=== PATIENT | male | born 1960 | race Caucasian/White ===

== ENCOUNTER 2020-08-01 12:05 | Outpatient (REF) | payer BC, SELFPAY ==
[2020-08-01 13:29] LABS: Estimated Average Glucose 166 mg/dL; Hemoglobin A1c % 7.4 %
[2020-08-01 13:42] LABS: Alanine Aminotransferase 14 U/L (0-40); Anion Gap 13 (12-20); Aspartate Amino Transferase 12 U/L (5-37); Blood Urea Nitrogen 21 mg/dL (9-16); Carbon Dioxide 26 mmol/L (22-29); Chloride 101 mmol/L (96-108); Cholesterol 224 mg/dL; Estimated Glomerular Filt Rate > 60; Glucose Fasting 138 mg/dL (60-99); HDL Cholesterol 43 mg/dL; LDL Cholesterol Calculated 127 mg/dl; Potassium 4.2 mmol/l (3.3-5.1); Sodium 136 mmol/L (135-145); Triglycerides 272 mg/dL
== END 2020-08-01 12:06 | disposition home or self-care (01) ==
LOC: HO.LAB 12:05
PROVIDERS: PCP Internal Medicine; Visit Provider Internal Medicine
DX: E11.65 Type 2 diabetes mellitus with hyperglycemia (principal); I10 Essential (primary) hypertension; E66.3 Overweight
CPT/HCPCS: 80048; 80061; 83036; 84450; 84460

== ENCOUNTER 2020-11-20 09:59 | Outpatient (REF) | payer BC, SELFPAY ==
[2020-11-20 11:24] LABS: Estimated Average Glucose 160 mg/dL; Hemoglobin A1c % 7.2 %
[2020-11-20 11:52] LABS: Alanine Aminotransferase 15 U/L (0-40); Anion Gap 14 (12-20); Aspartate Amino Transferase 15 U/L (5-37); Blood Urea Nitrogen 16 mg/dL (9-16); Calcium 9.5 mg/dL (8.4-10.2); Carbon Dioxide 26 mmol/L (22-29); Chloride 103 mmol/L (96-108); Cholesterol 212 mg/dL; Estimated Glomerular Filt Rate > 60; Glucose Fasting 126 mg/dL (60-99); HDL Cholesterol 39 mg/dL; LDL Cholesterol Calculated 126 mg/dl; Potassium 5.2 mmol/L (3.3-5.1); Sodium 138 mmol/L (135-145); Triglycerides 239 mg/dL
[2020-11-20 12:02] LABS: Creatinine Urine 67.38 mg/dL; Vitamin D 25-OH Total 19.7 ng/mL (>30)
== END 2020-11-20 10:00 | disposition home or self-care (01) ==
LOC: HO.HMGCLDS 09:59
PROVIDERS: PCP Internal Medicine; Visit Provider Internal Medicine
DX: I10 Essential (primary) hypertension (principal); E78.2 Mixed hyperlipidemia; E11.29 Type 2 diabetes mellitus with other diabetic kidney complication; R80.9 Proteinuria, unspecified; E11.65 Type 2 diabetes mellitus with hyperglycemia; Z86.39 Personal history of other endocrine, nutritional and metabolic disease
CPT/HCPCS: 36415; 80048; 80061; 82043; 82306; 83036; 84450; 84460

== ENCOUNTER 2021-05-24 09:09 | Outpatient (REF) | payer BC, SELFPAY ==
[2021-05-24 11:57] LABS: Alanine Aminotransferase 15 U/L (0-40); Anion Gap 13 (12-20); Aspartate Amino Transferase 14 U/L (5-37); Blood Urea Nitrogen 16 mg/dL (9-16); Calcium 9.5 mg/dL (8.4-10.2); Carbon Dioxide 27 mmol/L (22-29); Chloride 103 mmol/L (96-108); Cholesterol 184 mg/dL; Estimated Glomerular Filt Rate > 60; Glucose Fasting 124 mg/dL (60-99); HDL Cholesterol 40 mg/dL; LDL Cholesterol Calculated 101 mg/dl; Potassium 4.6 mmol/L (3.3-5.1); Sodium 138 mmol/L (135-145); Triglycerides 217 mg/dL
[2021-05-24 12:08] LABS: Estimated Average Glucose 154 mg/dL
[2021-05-24 12:19] LABS: Vitamin D 25-OH Total 32.4 ng/mL (>30)
== END 2021-05-24 09:10 | disposition home or self-care (01) ==
LOC: HO.HMGCLDS 09:09
PROVIDERS: PCP Internal Medicine; Visit Provider Internal Medicine
DX: E11.29 Type 2 diabetes mellitus with other diabetic kidney complication (principal); E11.65 Type 2 diabetes mellitus with hyperglycemia; E55.9 Vitamin D deficiency, unspecified; E78.2 Mixed hyperlipidemia; I10 Essential (primary) hypertension; R80.9 Proteinuria, unspecified
CPT/HCPCS: 36415; 80048; 80061; 82306; 83036; 84450; 84460

== ENCOUNTER 2022-01-01 10:25 | Outpatient (REF) | payer BC, SELFPAY ==
[2022-01-01 11:51] LABS: Estimated Average Glucose 169 mg/dL; Hemoglobin A1c % 7.5 %
[2022-01-01 11:56] LABS: Alanine Aminotransferase 16 U/L (0-40); Anion Gap 14 (12-20); Aspartate Amino Transferase 16 U/L (5-37); Blood Urea Nitrogen 21 mg/dL (9-16); Calcium 9.5 mg/dL (8.4-10.2); Carbon Dioxide 24 mmol/L (22-29); Chloride 104 mmol/L (96-108); Cholesterol 174 mg/dL; Estimated Glomerular Filt Rate > 60; Glucose Fasting 126 mg/dL (60-99); HDL Cholesterol 34 mg/dL; LDL Cholesterol Calculated 98 mg/dl; Potassium 4.9 mmol/L (3.3-5.1); Sodium 137 mmol/L (135-145); Triglycerides 213 mg/dL
[2022-01-01 12:16] LABS: Vitamin D 25-OH Total 29.5 ng/mL (>30)
[2022-01-01 12:35] LABS: Creatinine Urine 109.02 mg/dL; Microalbum/Creatinine Ratio Ur 9.1 ug/mg cr
== END 2022-01-01 10:26 | disposition home or self-care (01) ==
LOC: HO.HMGCLDS 10:25
PROVIDERS: PCP Internal Medicine; Visit Provider Internal Medicine
DX: Z12.5 Encounter for screening for malignant neoplasm of prostate (principal); E11.29 Type 2 diabetes mellitus with other diabetic kidney complication; E11.65 Type 2 diabetes mellitus with hyperglycemia; E78.2 Mixed hyperlipidemia; I10 Essential (primary) hypertension; R80.9 Proteinuria, unspecified; Z86.39 Personal history of other endocrine, nutritional and metabolic disease
CPT/HCPCS: 36415; 80048; 80061; 82043; 82306; 83036; 84153; 84450; 84460

== ENCOUNTER 2022-08-02 09:21 | Outpatient (REF) | payer BC, SELFPAY ==
[2022-08-02 12:43] LABS: Alanine Aminotransferase 13 U/L (0-40); Aspartate Amino Transferase 12 U/L (5-37); Blood Urea Nitrogen 19 mg/dL (9-16); Calcium 9.2 mg/dL (8.4-10.2); Cholesterol 173 mg/dL; Estimated Glomerular Filt Rate > 60; Glucose Fasting 113 mg/dL (60-99); HDL Cholesterol 35 mg/dL; LDL Cholesterol Calculated 101 mg/dl; PSA,Total (Free>4and<10) 0.85 ng/mL (0.00-4.00); Triglycerides 188 mg/dL; Vitamin D 25-OH Total 29.5 ng/mL (>30)
[2022-08-02 12:47] LABS: Estimated Average Glucose 148 mg/dL; Hemoglobin A1c % 6.8 %
[2022-08-02 14:06] LABS: Creatinine Urine 74.38 mg/dL; Microalbum/Creatinine Ratio Ur 12.1 ug/mg cr
[2022-08-02 14:28] LABS: Anion Gap 11 (12-20); Carbon Dioxide 26 mmol/L (22-29); Chloride 100 mmol/L (96-108); Potassium 4.2 mmol/L (3.3-5.1); Sodium 133 mmol/L (135-145)
== END 2022-08-02 09:22 | disposition home or self-care (01) ==
LOC: HO.HMGCLDS 09:21
PROVIDERS: PCP Internal Medicine; Visit Provider Internal Medicine
DX: Z12.5 Encounter for screening for malignant neoplasm of prostate (principal); R80.9 Proteinuria, unspecified; I10 Essential (primary) hypertension; E78.2 Mixed hyperlipidemia; E11.29 Type 2 diabetes mellitus with other diabetic kidney complication; E11.65 Type 2 diabetes mellitus with hyperglycemia; E55.9 Vitamin D deficiency, unspecified
CPT/HCPCS: 36415; 80048; 80061; 82043; 82306; 83036; 84153; 84450; 84460

== ENCOUNTER 2022-12-02 11:08 | Outpatient (REF) | payer BC, SELFPAY ==
[2022-12-02 14:45] LABS: Alanine Aminotransferase 13 U/L (0-40); Anion Gap 12 (12-20); Aspartate Amino Transferase 12 U/L (5-37); Blood Urea Nitrogen 11 mg/dL (9-16); Carbon Dioxide 26 mmol/L (22-29); Chloride 106 mmol/L (96-108); Cholesterol 150 mg/dL; Estimated Average Glucose 169 mg/dL; Estimated Glomerular Filt Rate > 60; Glucose Fasting 133 mg/dL (60-99); HDL Cholesterol 36 mg/dL; Hemoglobin A1c % 7.5 %; LDL Cholesterol Calculated 82 mg/dl; Potassium 4.8 mmol/L (3.3-5.1); Sodium 139 mmol/L (135-145); Triglycerides 164 mg/dL
[2022-12-02 14:48] LABS: Vitamin D 25-OH Total 34.6 ng/mL (>30)
== END 2022-12-02 11:09 | disposition home or self-care (01) ==
LOC: HO.HMGCLDS 11:08
PROVIDERS: PCP Internal Medicine; Visit Provider Internal Medicine
DX: E11.9 Type 2 diabetes mellitus without complications (principal); E55.9 Vitamin D deficiency, unspecified; E78.2 Mixed hyperlipidemia; I10 Essential (primary) hypertension; Z79.4 Long term (current) use of insulin
CPT/HCPCS: 36415; 80048; 80061; 82306; 83036; 84450; 84460

== ENCOUNTER 2022-12-04 11:29 | Outpatient (AMB) | payer BC, SELFPAY ==
--- NOTE | 2022-12-04 11:45 | A.OFFPC_ITS ---
Vital Signs 12/04/22 11:51 Height 5 ft 11 in Weight 193 lb 8 oz BMI 26.9 BP 104/68 Blood Pressure Location Rt brachial Position Sitting Pulse 66 Pulse Source Pulse Oximeter Pulse Oximetry (%) 97 Oxygen Delivery Method Room Air Intake Visit Reasons: follow-up diabetes, lipids, HTN, vitamin-D Intake Note: Pt is here today to f/u DM lipids, HTN and vitamin D Allergies minoxidil [From Rogaine] Allergy (Unknown, Verified 04/29/23 04:22) rash/swelling Medication List - Last Reconciled 12/04/22 by Daksha Mendenhall MD atorvastatin 20 mg PO DAILY cholecalciferol (vitamin D3) 50 mcg PO DAILY empagliflozin (Jardiance) 25 mg PO DAILY lisinopril 5 mg PO DAILY metformin 1,000 mg PO BID vitamin B complex (B Complex-Vitamin B12 tablet) 1 tab PO DAILY Tobacco use date assessed: 12/04/22 HPI follow-up diabetes, lipids, HTN, vitamin-D HPI Details 63-year-old male here today for follow-u p on his diabetes mellitus, hypertension and dyslipidemia. He has been compliant with taking his med ications, has no specific complaints at present time. Recent fasting labs showed hemoglobin A1c at 7.5%, but fasting lipids, I all within normal limits. Hypertension stable controlled on present medications. [facility] Medical History (Updated 08/03/23 @ 23:55 by Daksha Mendenhall MD) Immunization refused Diabetes mellitus with hyperglycemia, without long-term current use of insulin Polyarthralgia Refused influenza vaccine Pneumococcal vaccination declined Diabetes mellitus without complication, with long-term current use of insulin History of vitamin D deficiency History of deep venous thrombosis (DVT) of distal vein of right lower extremity Diabetic retinopathy screening Erectile dysfunction Essential hypertension Mixed dyslipidemia Surgical History Hx of colonoscopy History of umbilical hernia Family History Father CAD (coronary artery disease) Myocardial infarction CVD (cardiovascular disease) Mother Esophageal cancer Brother Bladder cancer Brother No problems noted. Brother No problems noted. Brother No problems noted. Daughter No problems noted. Daughter No problems noted. Social History Housing: House Alcohol intake: current Alcohol intake frequency: holidays/special occasions only Patient Tobacco Use Status: Never used Tobacco e-Cigarette/Vaping Use: Never Used service: No Current occupational status: employed Cognitive needs: No Hearing needs: No Vision needs: Yes Questionnaire PHQ-9 Over the last 2 weeks, how often have you been bothered by any of the following problems? 1. Little interest or pleasure in doing things: not at all 2. Feeling down, depressed, or hopeless: not at all 3. Trouble falling or staying asleep, or sleeping too much: several days 4. Feeling tired or having little energy: not at all 5. Poor appetite or overeating: not at all 6. Feeling bad about yourself - or that you are a failure or have let yourself or your family down: not at all 7. Trouble concentrating on things, such as reading the newspaper or watching television: not at all 8. Moving or speaking so slowly that other people could have noticed. Or the opposite - being so fidgety or restless that you have been moving around a lot more than usual: not at all 9. Thoughts that you would be better off or of hurting yourself in some way: not at all Total score: 1 Depression Screening Interpretation: Negative 83427 - PHQ-9 Billing: Yes Source: Developed by Drs. Jason Couch, Jeannine Sepulveda, Alan Fitch and colleagues, with an educational pat from [employer]. Thrive Questionnaire Declines Thrive assessment: No Date Thrive assessed: 12/04/22 I am a: Patient What is your living situation today?: I have a steady place to live Within the past 12 months, did the food you bought not last and you didn't have the money to get more?: Never true Within the past 12 months, did you worry whether your food would run out before you got money to buy more?: Never true Do you have trouble paying for medicines?: Yes Do you have trouble getting transportation to medical appointments?: No Do you have trouble paying your heating and electricity bill?: No Do you have trouble taking care of your child, family member or friend?: No Do you have trouble with day-to-day activities such as bathing, preparing meals, shopping, managing finances, etc.?: No Are you currently unemployed and looking for a job?: No Are you interested in more education?: No AUDIT C Alcohol Use Questionnaire (AUDIT-C) 1. How often do you have a drink containing alcohol?: Monthly or less 2. How many drinks containing alcohol do you have on a typical day when you are drinking?: 1 or 2 3. How often do you have six or more drinks on one occasion?: Never Total Score: 1 LASHAUN-7 AMB Questionnaire LASHAUN-7 Date LASHAUN - 7 assessed: 12/04/22 Feeling nervous, anxious, or on edge: 0 = Not at all Not being able to stop or control worryin = Not at all Worrying too much about different things: 0 = Not at all Trouble relaxin = Not at all Being so restless that it is hard to sit still: 0 = Not at all Becoming easily annoyed or irritable: 0 = Not at all Feeling afraid as if something awful might happen: 0 = Not at all Total LASHAUN-7 score (0-4 normal; 5-9 mild; 10-14 moderate; 15-21 severe): 0 Source: Developed by Drs. Jason Couch, Jeannine Sepulveda, Alan Fitch and colleagues, with an educational pat from [employer]. LASHAUN-7 Assessment Billing LASHAUN-7 Assessment Tool: LASHAUN-7 Assessment 46529 Review of Systems Const Denies fatigue, Denies fever(s), Denies headache(s) and Denies weakness Eyes Details: No retinopathy per patient, sees Dr. Grande yearly Denies change in vision, Denies eye discharge and Denies itchy eyes ENT Denies dizziness, Denies headache(s), Denies nasal congestion, Denies nasal d ischarge and Denies sore throat Card Denies chest pain, Denies lightheadedness, Denies palpitations and Denies dyspnea Resp Denies chest congestion, Denies cough, Denies dyspnea and Denies wheezing GI Denies abdominal pain, Denies change in bowel habits and Denies heartburn Denies dysuria, Denies urinary frequency and Denies urinary urgency Musc Denies myalgias and Denies muscle weakness Skin/Breast Denies lesions and Denies rash Neuro Denies dizziness, Denies headache(s) and Denies weakness Endo Denies fatigue, Denies polydipsia, Denies polyuria and Denies palpitations Gabriele/Lymph Denies easy bruising Aller/Immun Denies itchy eyes, Denies seasonal rhinorrhea and Denies wheezing Physical exam (Primary Care) Vital Signs: Last Vital Signs Pulse 66 12/04/22 11:51 BP 104/68 12/04/22 11:51 Pulse Ox 97 12/04/22 11:51 Oxygen Delivery Method Room Air 12/04/22 11:51 BMI result Body Mass Index 26.9 Tobacco/Smoking Status: Tobacco use Status Tobacco use date assessed 12/04/22 12/04/22 11:59 Patient Tobacco Use Status Never used Tobacco 12/04/22 11:45 e-Cigarette/Vaping Use Never Used 12/04/22 11:45 PHQ-9: PHQ-9 Score PHQ-9: Total score 1 12/04/22 12:31 Depression Screening Interpretation: Negative Thrive Assessment: Date of Thrive Assessment Date Thrive assessed 12/04/22 12/04/22 11:59 Const General: comfortable, no acute distress and alert Orientation/consciousness: patient oriented x3 HENMT Ears: external ears normal, TM's normal bilaterally and EAC's normal General nose exam: Normal external nose present and No nasal discharge present Mouth: oropharynx normal and moist mucous membranes Eyes General: appearance normal, both eyes and all related structures Neck Neck: Yes full ROM, Yes no lymphadenopathy and Yes supple Resp Effort & Inspection: normal respiratory effort and able to speak in complete sentences Auscultation: clear to auscultation bilaterally Cardio Rate: regular rate Rhythm: regular rhythm Heart sounds: S1 normal heart sound present and S2 normal heart sound present GI Palpation (GI): Soft to palpation, nontender and no masses Auscultation: normal bowel sounds Male General Exam: Yes normal external exam Back/Spine/Pelvis Back: No back tenderness Skin General skin exam: no rashes or lesions noted Neuro General: patient oriented x3, gait normal, tone normal, moves all extremities, Normal light touch and pain sensation and no focal motor deficits Cranial nerves: Yes CN's II-XII intact bilaterally Cognition (Neuro): normal cognition Extrem General: Yes full ROM, Yes no joint enlargement, Yes no clubbing, cyanosis or edema and Yes no calf tenderness Results Reviewed Results Reviewed: Laboratory Tests 12/02/22 11:13 Estimat Average Glucose 169 Hemoglobin A1c % 7.5 RUN: 12/04/22 1218 PAGE 1 [facility] [address] [place] [id number] Community Development Coordinator: Willie Gregorio M.D. Specimen Inquiry Name: Kevin Martin Age/Sex: 62/M : 1960 Unit#: [id number] Attend Dr: Daksha Mendenhall MD Re12/02/22 Status: DEP REF Location: [facility] Disch: SPEC : [id number] MELANY: 12/02/22 STATUS: COMP REQ : [id number] RECD: 12/02/22-[address]: Daksha Mendenhall MD COMP: 12/02/22-1448 ENTERED: 12/02/22-[address]: ORDERED: Met Prof Fast, AST, ALT, Lipid Panel, Vitamin D 25-OH Test Result Flag Reference Site Sodium 139 135-145 mmol/L Potassium 4.8 3.3-5.1 mmol/L CL 106 96-108 mmol/L CO2 26 22-29 mmol/L Gap 12 12-20 BUN 11 9-16 mg/dL Creat 0.92 0.5-1.4 mg/dL EGFR > 60 NOTE: For -Marshallese individuals, multiply the result by 1.210. Chronic Kidney Disease: Estimated GFR < 60 mL/min/1.73m2 Severe Kidney Disease: Estimated GFR < 15 mL/min/1.73m2 FBS 133 H 60-99 mg/dL A fasting glucose of 126 mg/dl or greater on more than one occasion is considered diagnostic of diabetes. CA 9.0 8.4-10.2 mg/dL AST (GOT) 12 5-37 U/L ALT (GPT) 13 0-40 U/L Triglyceride 164 mg/dL Desirable Triglyceride: less than 150 mg/dL Borderline High Triglyceride 150-199 mg/dL High Triglyceride: 200-499 mg/dL Very High Triglyceride: greater than or equal to 5OO mg/dL Chol 150 mg/dL Desirable Cholesterol: less than 200 mg/dL Borderline High Cholesterol: 200-239 mg/dL High Cholesterol: greater than 239 mg/dL LDL Calculated 82 mg/dl Desirable LDL: less than 100 mg/dL Near Optimal/Above Optimal LDL: 110-129 mg/dL Borderline High LDL: 130-159 mg/dL High LDL: 160-189 mg/dL Very High LDL: greater than or equal to 190 mg/dL HDL 36 mg/dL Desirable HDL: greater than 40 mg/dL Note: This HDL assay may give artificially low results in patients with liver disease. Vit D 25-OH Tot 34.6 >30 ng/mL Health Based Reference Values* < 20 ng/mL Deficient 20-30 ng/mL Insufficient > 30 ng/mL Sufficient Assessment and Plan Assessment & Plan (1) Diabetes mellitus with hyperglycemia, without long-term current use of insulin: Code(s): E11.65 - Type 2 diabetes mellitus with hyperglycemia Qualifiers: Diabetes mellitus type: type 2 Qualified Code(s): E11.65 - Type 2 diabetes mellitus with hyperglycemia Plan: Hemoglobin A1c at 7.5%. Goal is to go<6.5%. Stressed importance of following recommended diet and rec getting regular exercise. Will continue on current dose of metformin 1000 mg 1 tablet twice a day and Jardiance 25 mg daily. Will check diabetes mellitus control in 3 months panel and (2) Pneumococcal vaccination declined: Code(s): Z28.21 - Immunization not carried out because of patient refusal (3) Refused influenza vaccine: Code(s): Z28.21 - Immunization not carried out because of patient refusal (4) Essential hypertension: Code(s): I10 - Essential (primary) hypertension Plan: Blood pressure at goal of less than 130/80. Continue with current medication. Reinforced importance of following a low sodium diet, getting regular exercise, and lowering stress levels. (5) Mixed dyslipidemia: Code(s): E78.2 - Mixed hyperlipidemia Plan: Reviewed recent fasting lipid profile with patient with levels at goal . Continue with atorvastatin 20 mg daily , in addition to adherence to low- cholesterol diet and regular exercise, at least 30 minutes 3 to 4 times a week. Advised patient to make healthy food choices, eat more fruits, vegetables, whole grains, wild caught fish and low-fat dairy. Limit amount of meat and fried or fatty food products, as well as processed foods and fast foods. Follow-up scheduled with repeat fasting lipid panel in 3 months. Orders: Orders Hemoglobin A1c 3 Months Z28.21 - Immunization not carried out because of patient refusal, E11.65 - Type 2 diabetes mellitus with hyperglycemia, I10 - Essential (primary) hypertension, E78.2 - Mixed hyperlipidemia Lipid Panel 3 Months Z28.21 - Immunization not carried out because of patient refusal, E11.65 - Type 2 diabetes mellitus with hyperglycemia, I10 - Essential (primary) hypertension, E78.2 - Mixed hyperlipidemia Vitamin D 25-OH Total 3 Months Z28.21 - Immunization not carried out because of patient refusal, E11.65 - Type 2 diabetes mellitus with hyperglycemia, I10 - Essential (primary) hypertension, E78.2 - Mixed hyperlipidemia Aspartate Amino Transferase 3 Months Z28.21 - Immunization not carried out because of patient refusal, E11.65 - Type 2 diabetes mellitus with hyperglycemia, I10 - Essential (primary) hypertension, E78.2 - Mixed hyperlipidemia Microalbumin, Random (w Creat) 3 Months Z28.21 - Immunization not carried out because of patient refusal, E11.65 - Type 2 diabetes mellitus with hyperglycemia, I10 - Essential (primary) hypertension, E78.2 - Mixed hyperlipidemia Vitamin B12 and Folate 3 Months Z28.21 - Immunization not carried out because of patient refusal, E11.65 - Type 2 diabetes mellitus with hyperglycemia, I10 - Essential (primary) hypertension, E78.2 - Mixed hyperlipidemia Alanine Aminotransferase 3 Months Z28.21 - Immunization not carried out because of patient refusal, E11.65 - Type 2 diabetes mellitus with hyperglycemia, I10 - Essential (primary) hypertension, E78.2 - Mixed hyperlipidemia Basic Metabolic Panel Fasting 3 Months Z28.21 - Immunization not carried out because of patient refusal, E11.65 - Type 2 diabetes mellitus with hyperglycemia, I10 - Essential (primary) hypertension, E78.2 - Mixed hyperlipidemia Medications: Changed From metformin 1,000 mg PO BID 180 tabs 1RF To metformin 1,000 mg PO BID 180 tabs 3RF Refilled atorvastatin 20 mg PO DAILY 90 tabs 4RF Coding Level of Care Code Est Pt Level 4 (06240) Diagnoses Type 2 diabetes mellitus with hyperglycemia, without long-term current use of insulin E11.65 Diabetes mellitus type: type 2 Pneumococcal vaccination declined Z28.21 Refused influenza vaccine Z28.21 Essential hypertension I10 Mixed dyslipidemia E78.2 Additional Codes LASHAUN-7 Assessment Billing - LASHAUN-7 Assessment Tool: LASHAUN-7 Assessment 12829 ([id number])
[2022-12-04 11:51] VITALS: BP 104/68; PULSE 66; O2SAT 97; BMI 26.9
== END 2022-12-04 12:33 | disposition home or self-care (01) ==
LOC: HO.HMGC 11:29
PROVIDERS: PCP Internal Medicine; Visit Provider Internal Medicine
DX: E11.65 Type 2 diabetes mellitus with hyperglycemia (principal); Z28.21 Immunization not carried out because of patient refusal; I10 Essential (primary) hypertension; E78.2 Mixed hyperlipidemia
CPT/HCPCS: 99214

== ENCOUNTER 2022-12-25 11:38 | Day surgery (SDC) | payer BC, SELFPAY ==
--- NOTE | 2022-12-24 14:23 | HO.ANESPROP2 ---
Documented by User: Nichole Goodman NP 12/24/22 14:23 HPI - Anesthesia Eval Consult details Narrative: 62yo M for Colonoscopy PMFSH Active Problems Active Problems: All Active Problems (Updated 12/04/22 @ 12:33 by Daksha Mendenhall MD) Diabetes mellitus with hyperglycemia, without long-term current use of insulin (Acute) Polyarthralgia (Acute) Refused influenza vaccine (Acute) Pneumococcal vaccination declined (Acute) Diabetes mellitus without complication, with long-term current use of insulin (Acute) Vitamin D deficiency (Acute) Erectile dysfunction (Acute) Essential hypertension (Acute) Mixed dyslipidemia (Acute) Past Medical History Medical History Diabetes mellitus with hyperglycemia, without long-term current use of insulin Diabetes mellitus without complication, with long-term current use of insulin Diabetic retinopathy screening Erectile dysfunction Essential hypertension History of deep venous thrombosis (DVT) of distal vein of right lower extremity History of vitamin D deficiency Mixed dyslipidemia Pneumococcal vaccination declined Polyarthralgia Refused influenza vaccine Vitamin D deficiency Family History Family History Father CAD (coronary artery disease) Myocardial infarction CVD (cardiovascular disease) Mother Esophageal cancer Brother Bladder cancer Brother No problems noted. Brother No problems noted. Brother No problems noted. Daughter No problems noted. Daughter No problems noted. Surgical History Surgical History History of umbilical hernia Hx of colonoscopy Social History Social History Housing: House Alcohol intake: current Alcohol intake frequency: holidays/special occasions only Patient Tobacco Use Status: Never used Tobacco e-Cigarette/Vaping Use: Never Used service: No Current occupational status: employed Cognitive needs: No Hearing needs: No Vision needs: Yes Meds Allergies Allergy/AdvReac Type Severity Reaction Status Date / Time minoxidil [From Rogaine] Allergy Unknown rash/swelli Verified 12/04/22 12:23 ng Home Medications Medication Instructions Recorded Confirmed Last Taken Type cholecalciferol (vitamin D3) 50 50 mcg PO DAILY 12/04/22 12/25/22 12/23/22 History mcg (2,000 unit) capsule Exam Exam Date and Time: December 24, 2022 1423 Pertinent Lab Results Pertinent Lab Results: Laboratory Tests 12/02/22 11:13 Sodium 139 Potassium 4.8 Chloride 106 Carbon Dioxide 26 BUN 11 Creatinine 0.92 Assessment and Plan Assessment Anesthesia Assessment: Chart Reviewed Documented by User: Harika Bowman MD 12/25/22 13:45 [facility] Active Problems Active Problems: All Active Problems (Updated 12/05/22 @ 12:50 by Harika Bowman MD) Diabetes mellitus with hyperglycemia, without long-term current use of insulin (Acute) Polyarthralgia (Acute) Refused influenza vaccine (Acute) Pneumococcal vaccination declined (Acute) Diabetes mellitus without complication, with long-term current use of insulin (Acute) Vitamin D deficiency (Acute) Erectile dysfunction (Acute) Essential hypertension (Acute) Mixed dyslipidemia (Acute) Denies VASQUEZ Past Medical History Medical History Diabetes mellitus with hyperglycemia, without long-term current use of insulin Diabetes mellitus without complication, with long-term current use of insulin Diabetic retinopathy screening Erectile dysfunction Essential hypertension History of deep venous thrombosis (DVT) of distal vein of right lower extremity History of vitamin D deficiency Mixed dyslipidemia Pneumococcal vaccination declined Polyarthralgia Refused influenza vaccine Vitamin D deficiency Family History Family History Father CAD (coronary artery disease) Myocardial infarction CVD (cardiovascular disease) Mother Esophageal cancer Brother Bladder cancer Brother No problems noted. Brother No problems noted. Brother No problems noted. Daughter No problems noted. Daughter No problems noted. Family history of problems with anesthesia: No Surgical History Surgical History History of umbilical hernia Hx of colonoscopy History of Problems with Anesthesia: No Social History Social History Housing: House Alcohol intake: current Alcohol intake frequency: holidays/special occasions only Patient Tobacco Use Status: Never used Tobacco e-Cigarette/Vaping Use: Never Used service: No Current occupational status: employed Cognitive needs: No Hearing needs: No Vision needs: Yes Meds Allergies Allergy/AdvReac Type Severity Reaction Status Date / Time minoxidil [From Rogaine] Allergy Unknown rash/swelli Verified 12/04/22 12:23 ng Home Medications Medication Instructions Recorded Confirmed Last Taken Type cholecalciferol (vitamin D3) 50 50 mcg PO DAILY 12/04/22 12/25/22 12/23/22 History mcg (2,000 unit) capsule Exam Height,Weight and Vital Signs: Height 5 ft 11 in Weight 88.451 kg Vital Signs Temp Pulse Resp BP Pulse Ox O2 Del Method 12/25/22 11:55 97 F 72 19 138/85 97 Room Air Pertinent Lab Results Pertinent Lab Results: Laboratory Tests 12/02/22 11:13 Sodium 139 Potassium 4.8 Chloride 106 Carbon Dioxide 26 BUN 11 Creatinine 0.92 Lab Results 12/25/22 Range/Units 11:48 POC Glucose 116 H (60-115) mg/dL Airway Mallampati Class: II TM Dist: >3cm Neck ROM: Full Loose/Missing/Broken Teeth: No (Denies broken, loose, missing teeth) Heart: RRR Lungs: CTAB Assessment and Plan Assessment Anesthesia Assessment: Anesthesia Plan Discussed Final Anesthetic Review Family History of Problems with Anesthesia: No History of Problems with Anesthesia: No NPO: Yes ASA Class: II Final Preanesthetic Review: No Changes in Pt Med Stat, Meds/Allgs Chart Reviewed, Consent Obtained/Reviewed and Anes Risks/Benef Reviewed Patient Risk: Low Procedure Risk: Low Assessment/Block/Sedation in SS: Assess/Block/Sedation-SS Anesthetic Plan Anesthetic Plan: MAC: Disposition: Standard PACU
[2022-12-25 06:26] VITALS: BMI 27.1
[2022-12-25 11:55] VITALS: BP 138/85; PULSE 72; RESP 19; TEMP 36.1; O2SAT 97
[2022-12-25 11:58] LABS: Glucose, Whole Blood 116 mg/dL (60-115)
[2022-12-25] MEDS: Lactated Ringers 1,000 ML 100 ML IVCONT (12:13)
--- NOTE | 2022-12-25 12:55 | MHC.SHP ---
Pre-Procedural Eval Section A Date of Service: 12/25/22 The patient is an INPATIENT: No Changes since office visit: No Cold of Flu in the past 2 weeks, No New Medical Problems, No Changes in Medication and No Patient answered all questions The History & Physical has been completed within 30 days and I have reviewed it.: Yes Section B Chief Complaint: Screening,Family history of malignant neoplasm of Allergies: Allergies Allergy/AdvReac Type Severity Reaction Status Date / Time minoxidil [From Rogaine] Allergy Unknown rash/swelli Verified 12/04/22 12:23 ng Plan I have reviewed the history and physical and performed a pertinent physical examination on my patient. No changes have occurred unless specified. Time Spent With Patient Time: Total time managing care of this patient today ____ minutes.
--- NOTE | 2022-12-25 13:34 | P.BOP_ITS ---
Brief Operative Note Date of Service: 12/25/22 Pre-op diagnosis: screening Post-op diagnosis: same Procedure: colonoscopy Surgeon: Roberto Pitt Anesthesia: MAC Was an Manager Decision Support used for this Procedure?: No Estimated blood loss (mL): 0 Pathology: none sent Condition: stable Disposition: PACU
[2022-12-25 13:38] VITALS: BP 112/76; PULSE 81; RESP 18; TEMP 36.5; O2SAT 95
[2022-12-25 13:53] VITALS: BP 129/85; PULSE 62; RESP 18; TEMP 36.6; O2SAT 98
--- NOTE | 2022-12-25 14:18 | OP_ITS ---
DATE OF SERVICE: 12/25/2022 SURGEON: Roberto Pitt MD INDICATIONS: Colon cancer screening and family history of colon cancer. PREOPERATIVE DIAGNOSIS: POSTOPERATIVE DIAGNOSIS: PROCEDURE PERFORMED: Colonoscopy to the terminal ileum. ESTIMATED BLOOD LOSS: COMPLICATIONS: ANESTHESIA: Monitored anesthesia care. ASSISTANTS: SPECIMENS: DESCRIPTION OF PROCEDURE: The history and physical was performed. The risks and benefits of the procedure were explained to the patient. Informed consent was obtained. The patient was placed in the left lateral decubitus position. A digital rectal exam was performed and was found to be normal. The Olympus pediatric video colonoscope was introduced into the rectum and advanced to the cecum without difficulty. The cecum was identified by transillumination, palpation, and identification of ileocecal valve. Examination was performed. The scope was removed. He tolerated the procedure well and was returned to the recovery area in stable condition. FINDINGS: The terminal ileum was normal. The visualized colonic mucosa was normal. The quality of prep was good. There was some liquid stool coating the mucosa mainly in the cecum and right colon. This was washed and suctioned. The exam was considered adequate. No polyps were identified. Retroflexed examination showed moderate-sized internal hemorrhoids. IMPRESSION: Normal colonoscopy. RECOMMENDATION: 1. Follow up as needed rather. 2. Repeat colonoscopy is recommended in 5 years for family history of colon cancer. MD FAHAD Munson/ARAL / [phone]
== END 2022-12-25 14:56 | disposition home or self-care (01) ==
PROVIDERS: PCP Internal Medicine; Visit Provider Internal Medicine Gastroenterology
PROC: 0DJD8ZZ Inspection of Lower Intestinal Tract, Via Natural or Artificial Opening Endoscopic (ICD-10-PCS; CPT 45378; principal; 2022-12-25 13:00)
DX: Z12.11 Encounter for screening for malignant neoplasm of colon (principal); Z80.0 Family history of malignant neoplasm of digestive organs; K64.8 Other hemorrhoids; E78.00 Pure hypercholesterolemia, unspecified; E11.9 Type 2 diabetes mellitus without complications; Z79.84 Long term (current) use of oral hypoglycemic drugs; Z79.899 Other long term (current) drug therapy; Z86.718 Personal history of other venous thrombosis and embolism
CPT/HCPCS: 45378; 82947

== ENCOUNTER 2023-04-24 11:58 | Outpatient (REF) | payer BC, SELFPAY ==
[2023-04-24 15:09] LABS: Estimated Average Glucose 157 mg/dL; Hemoglobin A1c % 7.1 % (<6.0)
[2023-04-24 16:01] LABS: Creatinine Urine 81.99 mg/dL; Microalbum/Creatinine Ratio Ur 7.3 ug/mg cr (<30)
[2023-04-24 16:55] LABS: Alanine Aminotransferase 20 U/L (0-40); Anion Gap 13 (12-20); Aspartate Amino Transferase 14 U/L (5-37); Blood Urea Nitrogen 20 mg/dL (9-16); Calcium 9.2 mg/dL (8.4-10.2); Carbon Dioxide 26 mmol/L (22-29); Chloride 105 mmol/L (96-108); Cholesterol 167 mg/dL (<200); Estimated Glomerular Filt Rate > 60; Glucose Fasting 114 mg/dL (60-99); HDL Cholesterol 40 mg/dL (>40); LDL Cholesterol Calculated 81 mg/dL (<100); Potassium 4.8 mmol/L (3.3-5.1); Sodium 139 mmol/L (135-145); Triglycerides 232 mg/dL (<150)
[2023-04-24 17:17] LABS: Vitamin D 25-OH Total 44.1 ng/mL (>30)
[2023-04-24 17:20] LABS: Folate 15.1 ng/mL (> or = 4.0); Vitamin B12 494 pg/mL (200-900)
== END 2023-04-24 11:59 | disposition home or self-care (01) ==
LOC: HO.HMGCLDS 11:58
PROVIDERS: PCP Internal Medicine; Visit Provider Internal Medicine
DX: E11.65 Type 2 diabetes mellitus with hyperglycemia (principal); E78.2 Mixed hyperlipidemia; I10 Essential (primary) hypertension; Z28.21 Immunization not carried out because of patient refusal
CPT/HCPCS: 36415; 80048; 80061; 82043; 82306; 82607; 82746; 83036; 84450; 84460

== ENCOUNTER 2023-04-28 09:08 | Outpatient (AMB) | payer BC, SELFPAY ==
--- NOTE | 2023-04-28 09:30 | A.OFFPC_ITS ---
Vital Signs 04/28/23 09:32 Height 5 ft 11 in Weight 192 lb BMI 26.8 BP 112/70 Blood Pressure Location Lt brachial Position Sitting Pulse 78 Pulse Source Pulse Oximeter Pulse Oximetry (%) 96 Oxygen Delivery Method Room Air Intake Visit Reasons: ffupdm ,lipids, htn after labs done Intake Note: Pt is here today to f/u DM, lipids and HTN Allergies minoxidil [From Rogaine] Allergy (Unknown, Verified 04/29/23 04:22) rash/swelling Medication List - Last Reconciled 04/29/23 by Daksha Mendenhall MD atorvastatin 20 mg PO DAILY cholecalciferol (vitamin D3) 50 mcg PO DAILY empagliflozin (Jardiance) 25 mg PO DAILY lisinopril 5 mg PO DAILY metformin 1,000 mg PO BID Tobacco use date assessed: 04/28/23 Dental Screening Dental Screen Date: 04/28/23 Did you have a dental visit in the last 12 months?: Yes Did you have a dental problem in the last 6 months where you did not have access to dental care?: Yes Was dental information given to patient?: Patient has dentist HPI ffupdm ,lipids, htn after labs done HPI Details 63-year-old male with diabetes mellitus, dyslipidemia hypertension, here today for his follow-up. 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 Recent Fasting labs showed improving control of his diabetes with a hemoglobin A1c at 7.1%, and fasting lipids are within normal limits except for elevated triglycerides. He is up-to-date with his diabetes retinopathy screening, sees Dr. Grande. [facility] Medical History (Updated 04/28/23 @ 10:12 by Daksha Mendenhall MD) Diabetes mellitus with hyperglycemia, without long-term current use of insulin Diabetes mellitus without complication, with long-term current use of insulin Diabetic retinopathy screening Erectile dysfunction Essential hypertension History of deep venous thrombosis (DVT) of distal vein of right lower extremity History of vitamin D deficiency Immunization refused Mixed dyslipidemia Pneumococcal vaccination declined Polyarthralgia Refused influenza vaccine Surgical History History of umbilical hernia Hx of colonoscopy Family History Father CAD (coronary artery disease) Myocardial infarction CVD (cardiovascular disease) Mother Esophageal cancer Brother Bladder cancer Brother No problems noted. Brother No problems noted. Brother No problems noted. Daughter No problems noted. Daughter No problems noted. Social History Housing: House Alcohol intake: current Alcohol intake frequency: holidays/special occasions only Patient Tobacco Use Status: Never used Tobacco e-Cigarette/Vaping Use: Never Used service: No Current occupational status: employed Cognitive needs: No Hearing needs: No Vision needs: Yes Questionnaire PHQ-9 Over the last 2 weeks, how often have you been bothered by any of the following problems? Depression Screening Interpretation: Negative Source: Developed by Drs. Jason Couch, Jeannine Sepulveda, Alan Fitch and colleagues, with an educational pat from [employer]. Thrive Questionnaire Date Thrive assessed: 12/04/22 LASHAUN-7 AMB Questionnaire LASHAUN-7 Date LASHAUN - 7 assessed: 12/04/22 Source: Developed by Drs. Jason Couch, Jeannine Sepulveda, Alan Fitch and colleagues, with an educational pat from [employer]. Review of Systems Const Denies fatigue, Denies fever(s), Denies headache(s) and Denies weakness Eyes Details: No retinopathy per patient, sees Dr. Grande yearly Denies change in vision, Denies eye discharge and Denies itchy eyes ENT Denies dizziness, Denies headache(s), Denies nasal congestion, Denies nasal d ischarge and Denies sore throat Card Denies chest pain, Denies lightheadedness, Denies palpitations and Denies dyspnea Resp Denies chest congestion, Denies cough, Denies dyspnea and Denies wheezing GI Denies abdominal pain, Denies change in bowel habits and Denies heartburn Denies dysuria, Denies urinary frequency and Denies urinary urgency Musc Denies myalgias and Denies muscle weakness Skin/Breast Denies lesions and Denies rash Neuro Denies dizziness, Denies headache(s) and Denies weakness Endo Denies fatigue, Denies polydipsia, Denies polyuria and Denies palpitations Gabriele/Lymph Denies easy bruising Aller/Immun Denies itchy eyes, Denies seasonal rhinorrhea and Denies wheezing Physical exam (Primary Care) Vital Signs: Last Vital Signs Pulse 78 04/28/23 09:32 BP 112/70 04/28/23 09:32 Pulse Ox 96 04/28/23 09:32 Oxygen Delivery Method Room Air 04/28/23 09:32 BMI result Body Mass Index 26.8 Tobacco/Smoking Status: Tobacco use Status Tobacco use date assessed 04/28/23 04/28/23 09:33 Patient Tobacco Use Status Never used Tobacco 04/28/23 09:33 e-Cigarette/Vaping Use Never Used 04/28/23 09:33 Depression Screening Interpretation: Negative Thrive Assessment: Date of Thrive Assessment Date Thrive assessed 12/04/22 04/28/23 09:33 Const General: comfortable, no acute distress and alert Orientation/consciousness: patient oriented x3 HENMT Ears: external ears normal, TM's normal bilaterally and EAC's normal General nose exam: Normal external nose present and No nasal discharge present Mouth: oropharynx normal and moist mucous membranes Eyes General: appearance normal, both eyes and all related structures Neck Neck: Yes full ROM, Yes no lymphadenopathy and Yes supple Resp Effort & Inspection: normal respiratory effort and able to speak in complete sentences Auscultation: clear to auscultation bilaterally Cardio Rate: regular rate Rhythm: regular rhythm Heart sounds: S1 normal heart sound present and S2 normal heart sound present GI Palpation (GI): Soft to palpation, nontender and no masses Auscultation: normal bowel sounds Male General Exam: Yes normal external exam Back/Spine/Pelvis Back: No back tenderness Skin General skin exam: no rashes or lesions noted Neuro General: patient oriented x3, gait normal, tone normal, moves all extremities, Normal light touch and pain sensation and no focal motor deficits Cranial nerves: Yes CN's II-XII intact bilaterally Cognition (Neuro): normal cognition Extrem General: Yes full ROM, Yes no joint enlargement, Yes no clubbing, cyanosis or edema and Yes no calf tenderness Results Reviewed Results Reviewed: Laboratory Tests 12/02/22 04/24/23 04/24/23 11:13 12:01 12:07 Estimat Average Glucose 169 157 Hemoglobin A1c % 7.5 7.1 H Urine Creatinine 81.99 Urine Microalbumin 6.0 Microalb/Creat Ratio 7.3 RUN: 04/28/23 1000 PAGE 1 [facility] [address] [place] [id number] Lead Generation Specialist: Willie Gregorio M.D. Specimen Inquiry Name: Kevin Martin Age/Sex: 63/M : 1960 Unit#: [id number] Attend Dr: Daksha Mendenhall MD Re04/24/23 Status: DEP [facility] Dis[facility]: SPEC : [id number] MELANY: 04/24/23 STATUS: COMP REQ : [id number] RECD: 04/24/[address]: Daksha Mendenhall MD COMP: 04/24/23 ENTERED: 04/24/[address]: ORDERED: Met Prof Fast, AST, ALT, Lipid Panel, Vitamin D 25-OH Test Result Flag Reference Site Sodium 139 135-145 mmol/L Potassium 4.8 3.3-5.1 mmol/L CL 105 96-108 mmol/L CO2 26 22-29 mmol/L Gap 13 12-20 BUN 20 H 9-16 mg/dL Creat 0.99 0.5-1.4 mg/dL EGFR > 60 NOTE: For -Surinames[place] individuals, multiply the result by 1.210. Chronic Kidney Disease: Estimated GFR < 60 mL/min/1.73m2 Severe Kidney Disease: Estimated GFR < 15 mL/min/1.73m2 FBS 114 H 60-99 mg/dL A fasting glucose from 100-125 mg/dl is considered impaired (pre-diabetes). CA 9.2 8.4-10.2 mg/dL AST (GOT) 14 5-37 U/L ALT (GPT) 20 0-40 U/L Triglyceride 232 H <150 mg/dL Desirable Triglyceride: less than 150 mg/dL Borderline High Triglyceride 150-199 mg/dL High Triglyceride: 200-499 mg/dL Very High Triglyceride: greater than or equal to 5OO mg/dL Cholesterol 167 <200 mg/dL Desirable Cholesterol: less than 200 mg/dL Borderline High Cholesterol: 200-239 mg/dL High Cholesterol: greater than 239 mg/dL LDL Calculated 81 <100 mg/dL Desirable LDL: less than 100 mg/dL Near Optimal/Above Optimal LDL: 110-129 mg/dL Borderline High LDL: 130-159 mg/dL High LDL: 160-189 mg/dL Very High LDL: greater than or equal to 190 mg/dL HDL 40 L >40 mg/dL Desirable HDL: greater than 40 mg/dL Note: This HDL assay may give artificially low results in patients with liver disease. Vit D 25-OH Tot 44.1 >30 ng/mL Health Based Reference Values* < 20 ng/mL Deficient 20-30 ng/mL Insufficient > 30 ng/mL Sufficient Assessment and Plan Assessment & Plan (1) Diabetes mellitus with hyperglycemia, without long-term current use of insulin: Code(s): E11.65 - Type 2 diabetes mellitus with hyperglycemia Plan: Recent lab results reviewed with patient, with hemoglobin A1c improving compared to last check. Continued on Jardiance and metformin at the same dose. continue to check fasting blood sugar at home, maintain log and bring to next appointment for review. Reinforced diabetic diet and regular exercise with patient. He is up-to-date with his yearly diabetes retinopathy screening. Patient advised to inspect feet daily, for any signs of injury, callus or in fection. Compliance with diet and regular exercise again stressed. Blood pressure goal is less than 130/80, goal LDL is less than 100 and goal hemoglobin A1c is less than 7%, repeat another hemoglobin A1c in 3 months (2) Essential hypertension: Code(s): I10 - Essential (primary) hypertension Plan: Blood pressure at goal of less than 130/80. Continue with lisinopril 5 mg daily. Reinforced importance of following a low sodium diet, getting regular exercise, and lowering stress levels. (3) Mixed dyslipidemia: Code(s): E78.2 - Mixed hyperlipidemia Plan: Reviewed recent fasting lipid profile with patient with levels within normal limits except for elevated triglycerides . Continue with atorvastatin 20 mg daily , in addition to adherence to low-cholesterol diet and regular exercise, at least 30 minutes 3 to 4 times a week. Advised patient to make healthy food choices, eat more fruits, vegetables, whole grains, wild caught fish and low- fat dairy. Limit amount of meat and fried or fatty food products, as well as processed foods and fast foods. Repeat fasting lipid panel in 3 months. (4) Immunization refused: Code(s): Z28.21 - Immunization not carried out because of patient refusal Plan: Patient declines getting any further vaccinations which includes COVID flu and pneumonia vaccine, as well as Tdap Orders: Orders Alanine Aminotransferase 3 Months E11.65 - Type 2 diabetes mellitus with hyperglycemia, E78.2 - Mixed hyperlipidemia, I10 - Essential (primary) hypertension Aspartate Amino Transferase 3 Months E11.65 - Type 2 diabetes mellitus with hyperglycemia, E78.2 - Mixed hyperlipidemia, I10 - Essential (primary) hypertension Hemoglobin A1c 3 Months E11.65 - Type 2 diabetes mellitus with hyperglycemia, E78.2 - Mixed hyperlipidemia, I10 - Essential (primary) hypertension Lipid Panel 3 Months E11.65 - Type 2 diabetes mellitus with hyperglycemia, E78.2 - Mixed hyperlipidemia, I10 - Essential (primary) hypertension Review Patient declined Pneumococcal Vaccine: 04/28/23 Flu Vaccine not done: patient reason (Patient declined) Declined TDap/Td: 04/28/23 Coding Level of Care Code Est Pt Level 3 (66809) Diagnoses Diabetes mellitus with hyperglycemia, without long-term current use of insulin E11.65 Essential hypertension I10 Mixed dyslipidemia E78.2 Immunization refused Z28.21
[2023-04-28 09:32] VITALS: BP 112/70; PULSE 78; O2SAT 96; BMI 26.8
== END 2023-04-28 10:15 | disposition home or self-care (01) ==
PROVIDERS: PCP Internal Medicine; Visit Provider Internal Medicine
DX: E11.65 Type 2 diabetes mellitus with hyperglycemia (principal); I10 Essential (primary) hypertension; E78.2 Mixed hyperlipidemia; Z28.21 Immunization not carried out because of patient refusal
CPT/HCPCS: 99213

== ENCOUNTER 2023-09-17 10:41 | Outpatient (REF) | payer BC, SELFPAY ==
[2023-09-17 14:11] LABS: Estimated Average Glucose 186 mg/dL; Hemoglobin A1c % 8.1 % (<6.0)
[2023-09-17 14:15] LABS: Alanine Aminotransferase 18 U/L (0-40); Aspartate Amino Transferase 15 U/L (5-37); Cholesterol 173 mg/dL (<200); HDL Cholesterol 38 mg/dL (>40); LDL Cholesterol Calculated 101 mg/dL (<100); Triglycerides 173 mg/dL (<150)
== END 2023-09-17 10:42 | disposition home or self-care (01) ==
LOC: HO.HMGCLDS 10:41
PROVIDERS: PCP Internal Medicine; Visit Provider Internal Medicine
DX: E11.65 Type 2 diabetes mellitus with hyperglycemia (principal); E78.2 Mixed hyperlipidemia; I10 Essential (primary) hypertension
CPT/HCPCS: 36415; 80061; 83036; 84450; 84460

== ENCOUNTER 2023-12-05 11:02 | Outpatient (AMB) | payer BC, SELFPAY ==
--- NOTE | 2023-12-05 11:09 | MHC.PC.OV ---
Vital Signs 12/05/23 11:11 Height 5 ft 11 in Weight 188 lb BMI 26.2 BP 112/70 Blood Pressure Location Rt brachial Position Sitting Pulse 71 Pulse Source Pulse Oximeter Pulse Oximetry (%) 96 Oxygen Delivery Method Room Air Intake Visit Reasons: Annual PE Intake Note: Pt is here today his PE Allergies minoxidil [From Rogaine] Allergy (Unknown, Verified 12/07/23 12:29) rash/swelling Medication List - Last Reconciled 12/07/23 by Daksha Mendenhall MD atorvastatin 20 mg PO DAILY blood sugar diagnostic (Contour Next Test Strips) Test blood sugar twice per day blood-glucose meter (Contour Next Gen Meter) As directed cholecalciferol (vitamin D3) 50 mcg PO DAILY empagliflozin (Jardiance) 25 mg PO DAILY lancets Test blood sugar twice per day lisinopril 5 mg PO DAILY metformin ER 750 mg PO QPM Tobacco use date assessed: 12/05/23 Dental Screening Dental Screen Date: 12/05/23 Did you have a dental visit in the last 12 months?: Yes Did you have a dental problem in the last 6 months where you did not have access to dental care?: No Was dental information given to patient?: Patient has dentist HPI Annual PE HPI Details 63-year-old male with diabetes mellitus, hyperlipidemia, and hypertension, here today for his physical exam . Patient states that he has stopped taking his metformin, just taking Jardiance, and has not been getting any regular exercise her following diet as he was in the past. Hemoglobin A1c drawn today is at 2 8.2%. At pressure however has been stable and controlled on lisinopril 5 mg once a day. He has had COVID vaccines in the past but does not want to get a booster, declines flu vaccine.. He had a screening colonoscopy done in [address] Pitt which came back with normal findings however due to positive family history for colon cancer he is to have another repeat colonoscopy in 2027. He sees Dr[address] Grande for his routine diabetes retinopathy screening which came back negative, seen last month. Has been having intermittent episodes of pain and instability in his left hip joint. Denies any fall, but feels like left hip might give out at times. [facility] Medical History Immunization refused Diabetes mellitus with hyperglycemia, without long-term current use of insulin Polyarthralgia Refused influenza vaccine History of vitamin D deficiency History of deep venous thrombosis (DVT) of distal vein of right lower extremity Diabetic retinopathy screening Erectile dysfunction Essential hypertension Mixed dyslipidemia Surgical History Hx of colonoscopy History of umbilical hernia Family History Father CAD (coronary artery disease) Myocardial infarction CVD (cardiovascular disease) Mother Esophageal cancer Brother Bladder cancer Brother No problems noted. Brother No problems noted. Brother No problems noted. Daughter No problems noted. Daughter No problems noted. Social History Housing: House Alcohol intake: current Alcohol intake frequency: holidays/special occasions only Patient Tobacco Use Status: Never used Tobacco e-Cigarette/Vaping Use: Never Used service: No Current occupational status: employed Cognitive needs: No Hearing needs: No Vision needs: Yes Questionnaire PHQ-9 Over the last 2 weeks, how often have you been bothered by any of the following problems? 1. Little interest or pleasure in doing things: not at all 2. Feeling down, depressed, or hopeless: not at all 3. Trouble falling or staying asleep, or sleeping too much: not at all 4. Feeling tired or having little energy: not at all 5. Poor appetite or overeating: not at all 6. Feeling bad about yourself - or that you are a failure or have let yourself or your family down: not at all 7. Trouble concentrating on things, such as reading the newspaper or watching television: not at all 8. Moving or speaking so slowly that other people could have noticed. Or the opposite - being so fidgety or restless that you have been moving around a lot more than usual: not at all 9. Thoughts that you would be better off or of hurting yourself in some way: not at all Total score: 0 Depression Screening Interpretation: Negative Depression Screening Done: Yes 32724 - PHQ-9 Billing: Yes Source: Developed by Drs. Jason Couch, Jeannine Sepulveda, Alan Fitch and colleagues, with an educational pat from [employer]. Thrive Questionnaire Date Thrive assessed: 12/05/23 I am a: Patient What is your living situation today?: I have a steady place to live Within the past 12 months, did the food you bought not last and you didn't have the money to get more?: Never true Within the past 12 months, did you worry whether your food would run out before you got money to buy more?: Never true Do you have trouble paying for medicines?: No Do you have trouble getting transportation to medical appointments?: No Do you have trouble paying your heating and electricity bill?: No Do you have trouble taking care of your child, family member or friend?: No Do you have trouble with day-to-day activities such as bathing, preparing meals, shopping, managing finances, etc.?: No Are you currently unemployed and looking for a job?: No Are you interested in more education?: No THRIVE Score: 0 AUDIT C Alcohol Use Questionnaire (AUDIT-C) 1. How often do you have a drink containing alcohol?: 2-3 times a week 2. How many drinks containing alcohol do you have on a typical day when you are drinking?: 3 or 4 3. How often do you have six or more drinks on one occasion?: Monthly Total Score: 6 Score Reviewed/Action Taken: Yes (Counseling regarding excessive alcohol use given today) LASHAUN-7 AMB Questionnaire LASHAUN-7 Date LASHAUN - 7 assessed: 12/05/23 Feeling nervous, anxious, or on edge: 0 = Not at all Not being able to stop or control worryin = Not at all Worrying too much about different things: 0 = Not at all Trouble relaxin = Not at all Being so restless that it is hard to sit still: 0 = Not at all Becoming easily annoyed or irritable: 0 = Not at all Feeling afraid as if something awful might happen: 0 = Not at all Total LASHAUN-7 score (0-4 normal; 5-9 mild; 10-14 moderate; 15-21 severe): 0 Source: Developed by Drs. Jason Couch, Jeannine Sepulveda, Alan Fitch and colleagues, with an educational pat from [employer]. LASHAUN-7 Assessment Billing LASHAUN-7 Assessment Tool: LASHAUN-7 Assessment 85107 Review of Systems Const Denies fatigue, Denies fever(s), Denies headache(s) and Denies weakness Eyes Details: No retinopathy per patient, sees Dr. Grande yearly Denies change in vision, Denies eye discharge and Denies itchy eyes ENT Denies dizziness, Denies headache(s), Denies nasal congestion, Denies nasal discharge and Denies sore throat Card Denies chest pain, Denies lightheadedness, Denies palpitations and Denies dyspnea Resp Denies chest congestion, Denies cough, Denies dyspnea and Denies wheezing GI Denies abdominal pain, Denies change in bowel habits and Denies heartburn Denies dysuria, Denies urinary frequency and Denies urinary urgency Musc Reports as per HPI Skin/Breast Denies lesions and Denies rash Neuro Denies dizziness, Denies headache(s) and Denies weakness Psych Reports no additional complaints Endo Denies fatigue, Denies polydipsia, Denies polyuria and Denies palpitations Gabriele/Lymph Denies easy bruising Aller/Immun Denies itchy eyes, Denies seasonal rhinorrhea and Denies wheezing Physical exam (Primary Care) Vital Signs: Last Vital Signs Pulse 71 12/05/23 11:11 BP 112/70 12/05/23 11:11 Pulse Ox 96 12/05/23 11:11 Oxygen Delivery Method Room Air 12/05/23 11:11 BMI result Body Mass Index 26.2 Tobacco/Smoking Status: Tobacco use Status Tobacco use date assessed 12/05/23 12/05/23 11:13 Patient Tobacco Use Status Never used Tobacco 12/05/23 11:13 e-Cigarette/Vaping Use Never Used 12/05/23 11:13 PHQ-9: PHQ-9 Score PHQ-9: Total score 0 12/05/23 12:43 Depression Screening Interpretation: Negative Thrive Assessment: Date of Thrive Assessment Date Thrive assessed 12/05/23 12/05/23 11:13 Date of discussion: 12/05/23 Who was present: Patient Forms completed: None (Healthcare proxy and MOLST form given to patient, will discuss with family) Time spent: 1-15 minutes, not on file Const General: comfortable, no acute distress and alert Orientation/consciousness: patient oriented x3 HENMT Ears: external ears normal, TM's normal bilaterally and EAC's normal General nose exam: Normal external nose present and No nasal discharge present Mouth: oropharynx normal and moist mucous membranes Eyes General: appearance normal, both eyes and all related structures Neck Neck: Yes full ROM, Yes no lymphadenopathy and Yes supple Resp Effort & Inspection: normal respiratory effort and able to speak in complete sentences Auscultation: clear to auscultation bilaterally Cardio Rate: regular rate Rhythm: regular rhythm Heart sounds: S1 normal heart sound present and S2 normal heart sound present GI Palpation (GI): Soft to palpation, nontender and no masses Auscultation: normal bowel sounds Male General Exam: Yes normal external exam Back/Spine/Pelvis Back: No back tenderness Skin General skin exam: no rashes or lesions noted Neuro General: patient oriented x3, gait normal, tone normal, moves all extremities, Normal light touch and pain sensation and no focal motor deficits Cranial nerves: Yes CN's II-XII intact bilaterally Cognition (Neuro): normal cognition Extrem General: Yes full ROM, Yes no joint enlargement, Yes no clubbing, cyanosis or edema and Yes no calf tenderness Psych Appearance: grossly normal and well kempt Mental Status: mental status grossly normal Affect: normal affect Results AMB Hemoglobin A1c AMB Hemoglobin A1c 8.2 % Last Edit by Julianna Sam CMA on 12/05/23 12:05 Immunizations pneumoc 20-jonathan conj-dip cr(PF) 0.5 mL IM syringe Performing Provider: Daksha Mendenhall MD Performing Location: [facility] Administered by: Julianna Sam CMA on 12/05/23 12:43 Dose Route Admin Location Dispensed Lot Number Expiration Date [facility] [employer] 0.5 mL IM Right Deltoid 0.5 mL [id number] 11/29/24 8456-5699-66 [employer] VIS Given Date VIS Provided VIS Publication Date 12/05/23 Single Vaccine 21 Eligibility Eligibility Date Funding Source Not [facility] Eligible 12/05/23 Private Results Reviewed Results Reviewed: Laboratory Last Values Hgb A1c (Clinic) 8.2 % (4.0-6.0) H 12/05/23 12:04 Assessment and Plan Assessment & Plan (1) Annual visit for general adult medical examination with abnormal findings: Code(s): Z00.01 - Encounter for general adult medical examination with abnormal findings Plan: Will check appropriate labs. Recommended dental visit every 6 months and regular eye exams, yearly, sees Dr. Grande Take adequate calcium in diet and vitamin-D 3 at 2000 IU per cap once a day, in addition to weight-bearing exercises to help maintain good muscle tone and weight control. Instructed do self-testicular exam to check for any mass.. Has had COVID vaccines in the past but does not want to get further booster vaccines, does not want to get a flu shot, Prevnar 20 given today. (2) Instability of left hip joint: Code(s): M25.352 - Other instability, left hip Plan: REFERRED FOR PHYSICAL THERAPY (3) Diabetes mellitus with hyperglycemia, without long-term current use of insulin: Code(s): E11.65 - Type 2 diabetes mellitus with hyperglycemia Qualifiers: Diabetes mellitus type: type 2 Qualified Code(s): E11.65 - Type 2 diabetes mellitus with hyperglycemia Plan: Continue with Jardiance 25 mg daily in a.m. and will start back on metformin ER 750 mg 1 tablet at night with supper, continue checking blood sugar once a day and keep a log of the readings. Reinforced importance of following a diabetic diet and continue with regular exercise, advised to cut back on alcohol intake. He is up-to-date with his diabetes retinopathy screening, sees Dr. Grande. Declines flu shot, does not want to get further COVID vaccines, but Prevnar 20 given today (4) Mixed dyslipidemia: Code(s): E78.2 - Mixed hyperlipidemia Plan: Fasting labs ordered to check lipids , continue atorvastatin 20 mg daily in addition to adherence to low-cholesterol diet and regular exercise. (5) Essential hypertension: Code(s): I10 - Essential (primary) hypertension Plan: Blood pressure at goal of less than 130/80. Continue with current medication. Reinforced importance of following a low sodium diet, getting regular exercise, and lowering stress levels. (6) Advanced directives, counseling/discussion: Code(s): Z71.89 - Other specified counseling Plan: Initiated the conversation about Advanced Directives. Advanced Directives help patients prepare for current and future decisions about their medical treatment and place of care. Discussed with patient that it is a process where a patients current condition and prognosis are reviewed, their wishes for information regarding their illness are elicited, and likely medical dilemmas are presented and options discussed. Healthcare proxy form and MOLST form given to patient, would like to discuss this 1st with his family, and bring it back on next visit. These forms can be amended as needed, reviewed yearly and make changes as needed (7) Refused influenza vaccine: Code(s): Z28.21 - Immunization not carried out because of patient refusal Orders: Orders AMB Hemoglobin A1c 12/05/23 E11.9 - Type 2 diabetes mellitus without complications, Z79.4 - assisted (current) use of insulin Basic Metabolic Panel Fasting 03/01/24 E11.65 - Type 2 diabetes mellitus with hyperglycemia, E11.9 - Type 2 diabetes mellitus without complications, E78.2 - Mixed hyperlipidemia, I10 - Essential (primary) hypertension, Z00.01 - Encounter for general adult medical examination with abnormal findings, Z12.5 - Encounter for screening for malignant neoplasm of prostate, Z79.4 - intermission coordinator (current) use of insulin Vitamin D 25-OH Total 03/01/24 E11.65 - Type 2 diabetes mellitus with hyperglycemia, E11.9 - Type 2 diabetes mellitus without complications, E78.2 - Mixed hyperlipidemia, I10 - Essential (primary) hypertension, Z00.01 - Encounter for general adult medical examination with abnormal findings, Z12.5 - Encounter for screening for malignant neoplasm of prostate, Z79.4 - assisted (current) use of insulin Pneumococcal 20 Immunization 12/05/23 Z23 - Encounter for immunization PT Evaluation and Treatment 12/05/23 M25.352 - Other instability, left hip Hemoglobin A1c 03/01/24 E11.65 - Type 2 diabetes mellitus with hyperglycemia, E11.9 - Type 2 diabetes mellitus without complications, E78.2 - Mixed hyperlipidemia, I10 - Essential (primary) hypertension, Z00.01 - Encounter for general adult medical examination with abnormal findings, Z12.5 - Encounter for screening for malignant neoplasm of prostate, Z79.4 - intermission coordinator (current) use of insulin Alanine Aminotransferase 03/01/24 E11.65 - Type 2 diabetes mellitus with hyperglycemia, E11.9 - Type 2 diabetes mellitus without complications, E78.2 - Mixed hyperlipidemia, I10 - Essential (primary) hypertension, Z00.01 - Encounter for general adult medical examination with abnormal findings, Z12.5 - Encounter for screening for malignant neoplasm of prostate, Z79.4 - intermission coordinator (current) use of insulin Aspartate Amino Transferase 03/01/24 E11.65 - Type 2 diabetes mellitus with hyperglycemia, E11.9 - Type 2 diabetes mellitus without complications, E78.2 - Mixed hyperlipidemia, I10 - Essential (primary) hypertension, Z00.01 - Encounter for general adult medical examination with abnormal findings, Z12.5 - Encounter for screening for malignant neoplasm of prostate, Z79.4 - assisted (current) use of insulin Lipid Panel 03/01/24 E11.65 - Type 2 diabetes mellitus with hyperglycemia, E11.9 - Type 2 diabetes mellitus without complications, E78.2 - Mixed hyperlipidemia, I10 - Essential (primary) hypertension, Z00.01 - Encounter for general adult medical examination with abnormal findings, Z12.5 - Encounter for screening for malignant neoplasm of prostate, Z79.4 - assisted (current) use of insulin PSA,Total (Free>4and<10) 03/01/24 E11.65 - Type 2 diabetes mellitus with hyperglycemia, E11.9 - Type 2 diabetes mellitus without complications, E78.2 - Mixed hyperlipidemia, I10 - Essential (primary) hypertension, Z00.01 - Encounter for general adult medical examination with abnormal findings, Z12.5 - Encounter for screening for malignant neoplasm of prostate, Z79.4 - intermission coordinator (current) use of insulin Medications: New metformin ER 750 mg PO QPM 90 tabs 1RF E11.65 - Type 2 diabetes mellitus with hyperglycemia Refilled atorvastatin 20 mg PO DAILY 90 tabs 4RF Coding Level of Care Code Est Pt Prev Care 40-64y(45276) Diagnoses Annual visit for general adult medical examination with abnormal findings Z00.01 Instability of left hip joint M25.352 Type 2 diabetes mellitus with hyperglycemia, without long-term current use of insulin E11.65 Diabetes mellitus type: type 2 Mixed dyslipidemia E78.2 Essential hypertension I10 Advanced directives, counseling/discussion Z71.89 Refused influenza vaccine Z28.21 Additional Codes Vital Signs *Quality* - Time spent: 1-15 minutes, not on file ([id number]) LASHAUN-7 Assessment Billing - LASHAUN-7 Assessment Tool: LASHAUN-7 Assessment [id number] ([id number])
[2023-12-05 11:11] VITALS: BP 112/70; PULSE 71; O2SAT 96; BMI 26.2
== END 2023-12-05 13:37 | disposition home or self-care (01) ==
PROVIDERS: PCP Internal Medicine; Visit Provider Internal Medicine
DX: Z00.00 Encounter for general adult medical examination without abnormal findings (principal); E11.9 Type 2 diabetes mellitus without complications; E11.65 Type 2 diabetes mellitus with hyperglycemia; Z23 Encounter for immunization; Z79.4 Long term (current) use of insulin; M25.352 Other instability, left hip; E78.2 Mixed hyperlipidemia; I10 Essential (primary) hypertension; Z71.89 Other specified counseling; Z28.21 Immunization not carried out because of patient refusal
CPT/HCPCS: 1124F; 83036; 90471; 90677; 99396

== ENCOUNTER 2024-03-24 08:17 | Outpatient (REF) | payer BC, SELFPAY ==
[2024-03-24 11:46] LABS: Estimated Average Glucose 183 mg/dL
[2024-03-24 12:01] LABS: Alanine Aminotransferase 17 U/L (0-40); Anion Gap 13 (12-20); Aspartate Amino Transferase 14 U/L (5-37); Blood Urea Nitrogen 21 mg/dL (9-16); Calcium 9.4 mg/dL (8.4-10.2); Carbon Dioxide 23 mmol/L (22-29); Chloride 106 mmol/L (96-108); Cholesterol 189 mg/dL (<200); Estimated Glomerular Filt Rate > 60; Glucose Fasting 160 mg/dL (60-99); HDL Cholesterol 42 mg/dL (>40); LDL Cholesterol Calculated 114 mg/dL (<100); Potassium 4.3 mmol/L (3.3-5.1); Sodium 138 mmol/L (135-145); Triglycerides 167 mg/dL (<150)
[2024-03-24 12:08] LABS: PSA,Total (Free>4and<10) 1.56 ng/mL (0.00-4.00)
[2024-03-24 12:17] LABS: Vitamin D 25-OH Total 59.4 ng/mL (>30)
== END 2024-03-24 08:18 | disposition home or self-care (01) ==
LOC: HO.HMGCLDS 08:17
PROVIDERS: PCP Internal Medicine; Visit Provider Internal Medicine
DX: Z00.01 Encounter for general adult medical examination with abnormal findings (principal); E11.65 Type 2 diabetes mellitus with hyperglycemia; E11.9 Type 2 diabetes mellitus without complications; Z79.4 Long term (current) use of insulin; I10 Essential (primary) hypertension; E78.2 Mixed hyperlipidemia; Z12.5 Encounter for screening for malignant neoplasm of prostate
CPT/HCPCS: 36415; 80048; 80061; 82306; 83036; 84153; 84450; 84460

== ENCOUNTER 2024-03-29 13:14 | Outpatient (AMB) | payer BC, SELFPAY ==
[2024-03-29 13:23] VITALS: BP 120/78; PULSE 80; O2SAT 97; BMI 26.3
--- NOTE | 2024-03-29 13:23 | MHC.PC.OV ---
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 Accompanied by: Self / Same As Patient Allergies minoxidil [From Rogaine] Allergy (Unknown, Verified 03/29/24 13:49) rash/swelling Medication List - Last Reconciled 03/29/24 by Daksha Mendenhall MD atorvastatin 20 mg PO DAILY blood sugar diagnostic (Contour Next Test Strips) Test blood sugar twice per day blood-glucose meter (Contour Next Gen Meter) As directed cholecalciferol (vitamin D3) 50 mcg PO DAILY empagliflozin (Jardiance) 25 mg PO DAILY lancets Test blood sugar twice per day lisinopril 5 mg PO DAILY metformin ER 750 mg PO QPM Tobacco use date assessed: 12/05/23 Dental Screening Dental Screen Date: 12/05/23 HPI 6 month follow up HPI Details 64 year-old male with diabetes mellitus, hyperlipidemia, and hypertension, here today for his follow-up . He is currently taking metforminER 750 mg at night , and Jardiance, . He has been trying to comply with recommended diet, stays active. Blood pressure has been stable and controlled on lisinopril 5 mg once a day. He had a screening colonoscopy done in [address] Pitt which came back with normal findings however due to positive family history for colon cancer he is to have another repeat colonoscopy in 2027. He sees Dr. Grande for his routine diabetes retinopathy screening which came back negative. He has been feeling fine except for occasional pain his hips . [facility] Medical History Immunization refused Diabetes mellitus with hyperglycemia, without long-term current use of insulin Polyarthralgia Refused influenza vaccine History of vitamin D deficiency History of deep venous thrombosis (DVT) of distal vein of right lower extremity Diabetic retinopathy screening Erectile dysfunction Essential hypertension Mixed dyslipidemia Surgical History Hx of colonoscopy History of umbilical hernia Family History Father CAD (coronary artery disease) Myocardial infarction CVD (cardiovascular disease) Mother Esophageal cancer Brother Bladder cancer Brother No problems noted. Brother No problems noted. Brother No problems noted. Daughter No problems noted. Daughter No problems noted. Social History Housing: House Alcohol intake: current Alcohol intake frequency: holidays/special occasions only Patient Tobacco Use Status: Never used Tobacco e-Cigarette/Vaping Use: Never Used service: No Current occupational status: employed Cognitive needs: No Hearing needs: No Vision needs: Yes Questionnaire PHQ-9 Over the last 2 weeks, how often have you been bothered by any of the following problems? 1. Little interest or pleasure in doing things: not at all 2. Feeling down, depressed, or hopeless: not at all 3. Trouble falling or staying asleep, or sleeping too much: several days 4. Feeling tired or having little energy: not at all 5. Poor appetite or overeating: not at all 6. Feeling bad about yourself - or that you are a failure or have let yourself or your family down: not at all 7. Trouble concentrating on things, such as reading the newspaper or watching television: not at all 8. Moving or speaking so slowly that other people could have noticed. Or the opposite - being so fidgety or restless that you have been moving around a lot more than usual: not at all 9. Thoughts that you would be better off or of hurting yourself in some way: not at all Total score: 1 Depression Screening Interpretation: Negative Depression Screening Done: Yes 25081 - PHQ-9 Billing: Yes Source: Developed by Drs. Jason Couch, Jeannine Sepulveda, Alan Fitch and colleagues, with an educational pat from [employer]. Thrive Questionnaire Date Thrive assessed: 03/29/24 I am a: Patient What is your living situation today?: I have a steady place to live Within the past 12 months, did the food you bought not last and you didn't have the money to get more?: Never true Within the past 12 months, did you worry whether your food would run out before you got money to buy more?: Never true Do you have trouble paying for medicines?: No Do you have trouble getting transportation to medical appointments?: No Do you have trouble paying your heating and electricity bill?: No Do you have trouble taking care of your child, family member or friend?: No Do you have trouble with day-to-day activities such as bathing, preparing meals, shopping, managing finances, etc.?: No Are you currently unemployed and looking for a job?: No Are you interested in more education?: No Please select the resources that you would like help with: Housing/Snf Currently or been in a relationship where the following occur: No concerns reported THRIVE Score: 0 AUDIT C Alcohol Use Questionnaire (AUDIT-C) 1. How often do you have a drink containing alcohol?: 2-3 times a week 2. How many drinks containing alcohol do you have on a typical day when you are drinking?: 3 or 4 3. How often do you have six or more drinks on one occasion?: Less than monthly Total Score: 5 Score Reviewed/Action Taken: Yes LASHAUN-7 AMB Questionnaire LASHAUN-7 Date LASHAUN - 7 assessed: 03/29/24 Feeling nervous, anxious, or on edge: 0 = Not at all Not being able to stop or control worryin = Not at all Worrying too much about different things: 0 = Not at all Trouble relaxin = Not at all Being so restless that it is hard to sit still: 0 = Not at all Becoming easily annoyed or irritable: 0 = Not at all Feeling afraid as if something awful might happen: 0 = Not at all Total LASHAUN-7 score (0-4 normal; 5-9 mild; 10-14 moderate; 15-21 severe): 0 Source: Developed by Drs. Jason Couch, Jeannine Sepulveda, Alan Fitch and colleagues, with an educational pat from [employer]. LASHAUN-7 Assessment Billing LASHAUN-7 Assessment Tool: LASHAUN-7 Assessment 74695 Review of Systems Const Denies fatigue, Denies fever(s), Denies headache(s) and Denies weakness Eyes Details: No retinopathy per patient, sees Dr. Grande yearly Denies change in vision, Denies eye discharge and Denies itchy eyes ENT Denies dizziness, Denies headache(s), Denies nasal congestion, Denies nasal discharge and Denies sore throat Card Denies chest pain, Denies lightheadedness, Denies palpitations and Denies dyspnea Resp Denies chest congestion, Denies cough, Denies dyspnea and Denies wheezing GI Denies abdominal pain, Denies change in bowel habits and Denies heartburn Denies dysuria, Denies urinary frequency and Denies urinary urgency Musc Reports as per HPI Skin/Breast Denies lesions and Denies rash Neuro Denies dizziness, Denies headache(s) and Denies weakness Psych Reports no additional complaints Endo Denies fatigue, Denies polydipsia, Denies polyuria and Denies palpitations Gabriele/Lymph Denies easy bruising Aller/Immun Denies itchy eyes, Denies seasonal rhinorrhea and Denies wheezing Physical exam (Primary Care) Vital Signs: Last Vital Signs Pulse 80 03/29/24 13:23 BP 120/78 03/29/24 13:23 Pulse Ox 97 03/29/24 13:23 Oxygen Delivery Method Room Air 03/29/24 13:23 BMI result Body Mass Index 26.3 Tobacco/Smoking Status: Tobacco use Status Tobacco use date assessed 12/05/23 03/29/24 13:24 Patient Tobacco Use Status Never used Tobacco 03/29/24 13:24 e-Cigarette/Vaping Use Never Used 03/29/24 13:24 PHQ-9: PHQ-9 Score PHQ-9: Total score 1 03/29/24 13:50 Depression Screening Interpretation: Negative Thrive Assessment: Date of Thrive Assessment Date Thrive assessed 03/29/24 03/29/24 13:24 Currently or been in a relationship where the following occur: No concerns reported Date of discussion: 12/05/23 Who was present: Patient Forms completed: None (Healthcare proxy and MOLST form given to patient, will discuss with family) Time spent: 1-15 minutes, not on file Const General: comfortable, no acute distress and alert Orientation/consciousness: patient oriented x3 HENMT Ears: external ears normal, TM's normal bilaterally and EAC's normal General nose exam: Normal external nose present and No nasal discharge present Mouth: oropharynx normal and moist mucous membranes Eyes General: appearance normal, both eyes and all related structures Neck Neck: Yes full ROM, Yes no lymphadenopathy and Yes supple Chest Chest palpation & inspection: normal inspection of the chest and normal palpation of entire chest wall Resp Effort & Inspection: normal respiratory effort and able to speak in complete sentences Auscultation: clear to auscultation bilaterally Cardio Rate: regular rate Rhythm: regular rhythm Heart sounds: S1 normal heart sound present and S2 normal heart sound present GI Palpation (GI): Soft to palpation, nontender and no masses Auscultation: normal bowel sounds Male General Exam: Yes normal external exam Back/Spine/Pelvis Back: No back tenderness Skin General skin exam: no rashes or lesions noted Neuro General: patient oriented x3, gait normal, tone normal, moves all extremities, Normal light touch and pain sensation and no focal motor deficits Cranial nerves: Yes CN's II-XII intact bilaterally Cognition (Neuro): normal cognition Extrem General: Yes full ROM, Yes no joint enlargement, Yes no clubbing, cyanosis or edema and Yes no calf tenderness Psych Appearance: grossly normal and well kempt Mental Status: mental status grossly normal Affect: normal affect Results Reviewed Results Reviewed: Name: Kevin Martin Age/Sex: 64/M : 1960 Unit#: [id number] Attend Dr: Daksha Mendenhall MD Re03/24/24 Status: DEP REF Location: [facility] Disch: SPEC : [id number] MELANY: 03/24/24 STATUS: COMP REQ : [id number] RECD: 03/24/[address]: Daksha Mendenhall MD COMP: 03/24/24 ENTERED: 03/24/24 [facility] DR: ORDERED: Met Prof Fast, AST, ALT, Lipid Panel, Vitamin D 25-OH Test Result Flag Reference Sodium 138 135-145 mmol/L Potassium 4.3 3.3-5.1 mmol/L CL 106 96-108 mmol/L CO2 23 22-29 mmol/L Gap 13 12-20 BUN 21 H 9-16 mg/dL Creat 1.10 0.5-1.4 mg/dL EGFR > 60 NOTE: For -[place] individuals, multiply the result by 1.210. Chronic Kidney Disease: Estimated GFR < 60 mL/min/1.73m2 Severe Kidney Disease: Estimated GFR < 15 mL/min/1.73m2 FBS 160 H 60-99 mg/dL A fasting glucose of 126 mg/dl or greater on more than one occasion is considered diagnostic of diabetes. CA 9.4 8.4-10.2 mg/dL AST (GOT) 14 5-37 U/L ALT (GPT) 17 0-40 U/L Triglyceride 167 H <150 mg/dL Desirable Triglyceride: less than 150 mg/dL Borderline High Triglyceride 150-199 mg/dL High Triglyceride: 200-499 mg/dL Very High Triglyceride: greater than or equal to 5OO mg/dL Cholesterol 189 <200 mg/dL Desirable Cholesterol: less than 200 mg/dL Borderline High Cholesterol: 200-239 mg/dL High Cholesterol: greater than 239 mg/dL LDL Calculated 114 H <100 mg/dL Desirable LDL: less than 100 mg/dL Near Optimal/Above Optimal LDL: 110-129 mg/dL Borderline High LDL: 130-159 mg/dL High LDL: 160-189 mg/dL Very High LDL: greater than or equal to 190 mg/dL HDL 42 >40 mg/dL Desirable HDL: greater than 40 mg/dL Note: This HDL assay may give artificially low results in patients with liver disease. Vit D 25-OH Tot 59.4 >30 ng/mL Health Based Reference Values* < 20 ng/mL Deficient 20-30 ng/mL Insufficient > 30 ng/mL Sufficient Laboratory Tests 04/24/23 12/05/23 03/24/24 12:01 12:04 08:23 Estimat Average Glucose 183 Hgb A1c (Clinic) 8.2 H Hemoglobin A1c % 7.1 H 8.0 H Assessment and Plan Assessment & Plan (1) Diabetes mellitus with hyperglycemia, without long-term current use of insulin: Code(s): E11.65 - Type 2 diabetes mellitus with hyperglycemia Qualifiers: Diabetes mellitus type: type 2 Qualified Code(s): E11.65 - Type 2 diabetes mellitus with hyperglycemia Plan: Some improvement in his diabetes control noted with hemoglobin A1c slightly lower at 8 0.0%. However goal is to go less than 7% for now. Will increase his metformin dose to 750 mg taken 1 tablet twice a day with meals. Continue with Jardiance, 25 mg 1 tablet in a.m. an hour before breakfast and again emphasized importance of following recommended diet and getting regular exercise. (2) Essential hypertension: Code(s): I10 - Essential (primary) hypertension Plan: Blood pressure stable controlled on lisinopril 5 mg daily (3) Mixed dyslipidemia: Code(s): E78.2 - Mixed hyperlipidemia Plan: Continue with atorvastatin 20 mg daily Orders: Orders Aspartate Amino Transferase 06/01/24 E11.65 - Type 2 diabetes mellitus with hyperglycemia, E78.2 - Mixed hyperlipidemia Hemoglobin A1c 06/01/24 E11.65 - Type 2 diabetes mellitus with hyperglycemia, E78.2 - Mixed hyperlipidemia Alanine Aminotransferase 06/01/24 E11.65 - Type 2 diabetes mellitus with hyperglycemia, E78.2 - Mixed hyperlipidemia Lipid Panel 06/01/24 E11.65 - Type 2 diabetes mellitus with hyperglycemia, E78.2 - Mixed hyperlipidemia Medications: Changed From metformin ER 750 mg PO QPM 90 tabs 1RF E11.65 - Type 2 diabetes mellitus with hyperglycemia To metformin ER 750 mg PO BID 3 months 180 tabs 1RF E11.65 - Type 2 diabetes mellitus with hyperglycemia From empagliflozin 25 mg PO DAILY 90 tabs 1RF To Jardiance (empagliflozin) 25 mg PO DAILY 90 tabs 3RF NS Coding Level of Care Code Est Pt Level 4 (70770) Complex EM visit Add On G2211 Diagnoses Type 2 diabetes mellitus with hyperglycemia, without long-term current use of insulin E11.65 Diabetes mellitus type: type 2 Essential hypertension I10 Mixed dyslipidemia E78.2 Additional Codes LASHAUN-7 Assessment Billing - LASHAUN-7 Assessment Tool: LASHAUN-7 Assessment 46141 ([id number]) Vital Signs *Quality* - Time spent: 1-15 minutes, not on file ([id number])
== END 2024-03-29 14:04 | disposition home or self-care (01) ==
PROVIDERS: PCP Internal Medicine; Visit Provider Internal Medicine
DX: E11.65 Type 2 diabetes mellitus with hyperglycemia (principal); I10 Essential (primary) hypertension; E78.2 Mixed hyperlipidemia; Z00.00 Encounter for general adult medical examination without abnormal findings
CPT/HCPCS: 1124F; 99214

== ENCOUNTER 2024-06-28 11:50 | Outpatient (AMB) | payer BC, SELFPAY ==
--- NOTE | 2024-06-28 12:09 | MHC.PC.OV ---
Vital Signs 06/28/24 12:16 Height 5 ft 11 in Weight 191 lb BMI 26.6 BP 130/80 Blood Pressure Location Lt brachial Position Sitting Pulse 94 Pulse Source Pulse Oximeter Pulse Oximetry (%) 97 Oxygen Delivery Method Room Air Intake Visit Reasons: 3 month f/u Intake Note: Pt is here today for his 3 mo. f/u Allergies minoxidil [From Rogaine] Allergy (Unknown, Verified 06/28/24 12:28) rash/swelling Medication List - Last Reconciled 06/28/24 by Daksha Mendenhall MD atorvastatin 20 mg PO DAILY blood sugar diagnostic (Contour Next Test Strips) Test blood sugar twice per day blood-glucose meter (Contour Next Gen Meter) As directed cholecalciferol (vitamin D3) 50 mcg PO DAILY Jardiance (empagliflozin) 25 mg PO DAILY NS lancets Test blood sugar twice per day lisinopril 5 mg PO DAILY metformin ER 750 mg PO BID 3 months Tobacco use date assessed: 06/28/24 Dental Screening Dental Screen Date: 06/28/24 Did you have a dental visit in the last 12 months?: Yes Did you have a dental problem in the last 6 months where you did not have access to dental care?: Yes Was dental information given to patient?: Patient has dentist HPI 3 month f/u HPI Details 64 year-old male with diabetes mellitus, hyperlipidemia, and hypertension, here today for his follow-up . He is currently taking metformin ER 750 mg 1 tablet twice a day, and Jardiance 25 mg once daily in a.m., in addition to atorvastatin 20 mg daily and lisinopril 5 mg once a day. Blood pressure stable and controlled on present treatment., has not yet had his fasting labs done which was already ordered for earlier this month. [facility] Medical History Immunization refused Diabetes mellitus with hyperglycemia, without long-term current use of insulin Polyarthralgia Refused influenza vaccine History of vitamin D deficiency History of deep venous thrombosis (DVT) of distal vein of right lower extremity Diabetic retinopathy screening Erectile dysfunction Essential hypertension Mixed dyslipidemia Surgical History Hx of colonoscopy History of umbilical hernia Family History Father CAD (coronary artery disease) Myocardial infarction CVD (cardiovascular disease) Mother Esophageal cancer Brother Bladder cancer Brother No problems noted. Brother No problems noted. Brother No problems noted. Daughter No problems noted. Daughter No problems noted. Social History Housing: House Alcohol intake: current Alcohol intake frequency: holidays/special occasions only Patient Tobacco Use Status: Never used Tobacco e-Cigarette/Vaping Use: Never Used service: No Current occupational status: employed Cognitive needs: No Hearing needs: No Vision needs: Yes Questionnaire Thrive Questionnaire Date Thrive assessed: 06/28/24 I am a: Patient What is your living situation today?: I have a steady place to live Within the past 12 months, did the food you bought not last and you didn't have the money to get more?: Never true Within the past 12 months, did you worry whether your food would run out before you got money to buy more?: Never true Do you have trouble paying for medicines?: No Do you have trouble getting transportation to medical appointments?: No Do you have trouble paying your heating and electricity bill?: No Do you have trouble taking care of your child, family member or friend?: No Do you have trouble with day-to-day activities such as bathing, preparing meals, shopping, managing finances, etc.?: No Are you currently unemployed and looking for a job?: No Are you interested in more education?: No Please select the resources that you would like help with: None Currently or been in a relationship where the following occur: No concerns reported THRIVE Score: 0 AUDIT C Alcohol Use Questionnaire (AUDIT-C) 1. How often do you have a drink containing alcohol?: 2-3 times a week 2. How many drinks containing alcohol do you have on a typical day when you are drinking?: 3 or 4 3. How often do you have six or more drinks on one occasion?: Less than monthly Total Score: 5 LASHAUN-7 AMB Questionnaire LASHAUN-7 Date LASHAUN - 7 assessed: 06/28/24 Feeling nervous, anxious, or on edge: 0 = Not at all Not being able to stop or control worryin = Not at all Worrying too much about different things: 0 = Not at all Trouble relaxin = Not at all Being so restless that it is hard to sit still: 0 = Not at all Becoming easily annoyed or irritable: 0 = Not at all Feeling afraid as if something awful might happen: 0 = Not at all Total LASHAUN-7 score (0-4 normal; 5-9 mild; 10-14 moderate; 15-21 severe): 0 Source: Developed by Drs. Jason Couch, Jeannine Sepulveda, Alan Fitch and colleagues, with an educational pat from [employer]. LASHAUN-7 Assessment Billing LASHAUN-7 Assessment Tool: LASHAUN-7 Assessment 06987 Review of Systems Const Denies fatigue, Denies fever(s), Denies headache(s) and Denies weakness Eyes Details: No retinopathy per patient, sees Dr. Grande yearly Denies change in vision, Denies eye discharge and Denies itchy eyes ENT Denies dizziness, Denies headache(s), Denies nasal congestion, Denies nasal discharge and Denies sore throat Card Denies chest pain, Denies lightheadedness, Denies palpitations and Denies dyspnea Resp Denies chest congestion, Denies cough, Denies dyspnea and Denies wheezing GI Denies abdominal pain, Denies change in bowel habits and Denies heartburn Denies dysuria, Denies urinary frequency and Denies urinary urgency Musc Reports as per HPI Skin/Breast Denies lesions and Denies rash Neuro Denies dizziness, Denies headache(s) and Denies weakness Psych Reports no additional complaints Endo Denies fatigue, Denies polydipsia, Denies polyuria and Denies palpitations Gabriele/Lymph Denies easy bruising Aller/Immun Denies itchy eyes, Denies seasonal rhinorrhea and Denies wheezing Physical exam (Primary Care) Vital Signs: Last Vital Signs Pulse 94 06/28/24 12:16 BP 130/80 06/28/24 12:16 Pulse Ox 97 06/28/24 12:16 Oxygen Delivery Method Room Air 06/28/24 12:16 BMI result Body Mass Index 26.6 Tobacco/Smoking Status: Tobacco use Status Tobacco use date assessed 06/28/24 06/28/24 12:20 Patient Tobacco Use Status Never used Tobacco 06/28/24 12:09 e-Cigarette/Vaping Use Never Used 06/28/24 12:09 Thrive Assessment: Date of Thrive Assessment Date Thrive assessed 06/28/24 06/28/24 12:22 Currently or been in a relationship where the following occur: No concerns reported Const General: comfortable, no acute distress and alert Orientation/consciousness: patient oriented x3 HENMT Ears: external ears normal, TM's normal bilaterally and EAC's normal General nose exam: Normal external nose present and No nasal discharge present Mouth: oropharynx normal and moist mucous membranes Eyes General: appearance normal, both eyes and all related structures Neck Neck: Yes full ROM, Yes no lymphadenopathy and Yes supple Resp Effort & Inspection: normal respiratory effort and able to speak in complete sentences Auscultation: clear to auscultation bilaterally Cardio Rate: regular rate Rhythm: regular rhythm Heart sounds: S1 normal heart sound present and S2 normal heart sound present GI Palpation (GI): Soft to palpation, nontender and no masses Auscultation: normal bowel sounds Skin General skin exam: no rashes or lesions noted Neuro General: patient oriented x3, gait normal, tone normal, moves all extremities, Normal light touch and pain sensation and no focal motor deficits Cranial nerves: Yes CN's II-XII intact bilaterally Cognition (Neuro): normal cognition Extrem General: Yes full ROM, Yes no joint enlargement, Yes no clubbing, cyanosis or edema and Yes no calf tenderness Results AMB Hemoglobin A1c AMB Hemoglobin A1c 7.5 % Last Edit by Julianna Sam CMA on 06/28/24 12:59 Results Reviewed Results Reviewed: Laboratory Last Values Hgb A1c (Clinic) 7.5 % (4.0-6.0) H 06/28/24 12:16 Laboratory Tests 03/24/24 08:23 Hemoglobin A1c % 8.0 H Coding Level of Care Code Est Pt Level 4 (21638) Complex EM visit Add On G2211 Diagnoses Type 2 diabetes mellitus with hyperglycemia, without long-term current use of insulin E11.65 Diabetes mellitus type: type 2 Additional Codes LASHAUN-7 Assessment Billing - LASHAUN-7 Assessment Tool: LASHAUN-7 Assessment 18853 ([id number]) Assessment & Plan Assessment & Plan (1) Diabetes mellitus with hyperglycemia, without long-term current use of insulin: Code(s): E11.65 - Type 2 diabetes mellitus with hyperglycemia Category: Medical Qualifiers: Diabetes mellitus type: type 2 Qualified Code(s): E11.65 - Type 2 diabetes mellitus with hyperglycemia Plan: Hemoglobin A1c now at 7.5%, better than last check at 8%. Increase metformin dose to a 1000 mg per tablet taken 1 tablet twice a day with meals will check urine for microalbuminuria screening on next visit. Sees Dr. Grande for his yearly eye exam See him back for follow-up in 3 months Orders: Orders AMB Hemoglobin A1c 06/28/24 E11.65 - Type 2 diabetes mellitus with hyperglycemia Microalbumin, Random (w Creat) 09/01/24 E11.65 - Type 2 diabetes mellitus with hyperglycemia Medications: New metformin 1,000 mg PO BIDWMEAL 180 tabs 2RF 3 months Discontinued metformin ER Discontinued Reason: Doctor's Order 750 mg PO BID 3 months 180 tabs 1RF E11.65 - Type 2 diabetes mellitus with hyperglycemia
[2024-06-28 12:16] VITALS: BP 130/80; PULSE 94; O2SAT 97; BMI 26.6
== END 2024-06-28 12:43 | disposition home or self-care (01) ==
PROVIDERS: PCP Internal Medicine; Visit Provider Internal Medicine
DX: E11.65 Type 2 diabetes mellitus with hyperglycemia (principal)

== ENCOUNTER → 2024-06-28 11:50 | Outpatient (BNVA) | payer BC, SELFPAY | PROVIDERS: PCP Internal Medicine; Visit Provider Internal Medicine | DX: E11.65 Type 2 diabetes mellitus with hyperglycemia (principal); Z79.84 Long term (current) use of oral hypoglycemic drugs | CPT/HCPCS: 83036; 96127 ==

== ENCOUNTER 2024-09-29 09:40 | Outpatient (REF) | payer BC, SELFPAY ==
--- OUTSIDE RECORDS SUMMARY | 2024-09-29 11:19 | XMS_ITS | Patient Health Record ---
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 the day before the procedure for 1 day 12/11/2022 Active Atorvastatin Calcium Active metFORMIN HCl Active IMMUNIZATIONS Vaccine Route Administration Date Status Comme nts Influenza Unknown 12/11/2022 Refused SOCIAL HISTORY Sex Assigned At : Social History Observation Description Sex Assigned At Unknown PROBLEMS Problem Type ICD Code Onset Dates Problem Status W/U Status Risk SNOMED Code Notes Problem Colon cancer screening (Z12.11) Active confirmed 893604119 Problem retirement (current) use of aspirin (Z79.82) Active confirmed 125247748 Problem Long-term current use of high risk medication other than anticoagulant (Z79.899) Active confirmed 326997551 Problem FH: colon cancer (Z80.0) Active confirmed 483010647 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 (Z79.84) Active confirmed 290239270580029 Problem Encounter for other preprocedural examination (Z01.818) Active confirmed 652854158 PLAN OF TREATMENT Future Test Test Name Order Date COLONOSCOPY 10/02/2016 COLONOSCOPY 12/11/2022 Insurance Providers Payer Name Payer Address Payer Phone Subscriber Number Group Number Insured Name Patient Relationship to Insured Coverage Start Date Coverage End Date [facility] PROFESSIONAL CLAIMS [address] [place] [address] [id number] SHERRY CAREY Self - patient is the insured MEDICAL (GENERAL) HISTORY Medical History History ICD Code Colonoscopy 12/16, lymphoid/h yperplastic polyps, five-year followup due to family history elevated cholesterol DVT following a torn calf muscle umbilical hernia diabetes mellitus Surgical History Surgery Date(Month/Year) hernia repair
[2024-09-29 13:44] LABS: Creatinine Urine 85.87 mg/dL; Microalbum/Creatinine Ratio Ur 17.4 ug/mg cr (<30)
[2024-09-29 14:03] LABS: Alanine Aminotransferase 18 U/L (0-40); Aspartate Amino Transferase 22 U/L (5-37); Cholesterol 173 mg/dL (<200); Estimated Average Glucose 166 mg/dL; HDL Cholesterol 34 mg/dL (>40); Hemoglobin A1C 227.0923 umol/L; Hemoglobin A1c % 7.4 % (<6.0); LDL Cholesterol Calculated 100 mg/dL (<100); Total Hemoglobin (HGBA1C) 3991.8512 umol/L; Triglycerides 195 mg/dL (<150)
== END 2024-09-29 09:41 | disposition home or self-care (01) ==
LOC: HO.HMGCLDS 09:40
PROVIDERS: PCP Internal Medicine; Visit Provider Internal Medicine
DX: E11.65 Type 2 diabetes mellitus with hyperglycemia (principal); E78.2 Mixed hyperlipidemia
CPT/HCPCS: 36415; 80061; 82043; 82570; 83036; 84450; 84460

== ENCOUNTER 2024-10-04 11:24 | Outpatient (AMB) | payer BC, SELFPAY ==
[2024-10-04 12:11] VITALS: BP 104/60; PULSE 78; RESP 18; TEMP 37; O2SAT 97; BMI 26.4
--- NOTE | 2024-10-04 12:11 | A.OFFPC_ITS ---
Vital Signs 10/04/24 12:11 Height 5 ft 11 in Weight 189 lb BMI 26.4 BP 104/60 Blood Pressure Location Rt brachial Position Sitting Respiration 18 Pulse 78 Pulse Source Pulse Oximeter Temp 98.6 F Temp Source Oral Pulse Oximetry (%) 97 Oxygen Delivery Method Room Air Intake Visit Reasons: 3 months follow up Intake Note: Pt is here today for his 3mo. f/u labs Allergies minoxidil [From Rogaine] Allergy (Unknown, Verified 10/04/24 12:22) rash/swelling Medication List - Last Reconciled 10/04/24 by Daksha Mendenhall MD atorvastatin 20 mg PO DAILY blood sugar diagnostic (Contour Next Test Strips) Test blood sugar twice per day blood-glucose meter (Contour Next Gen Meter) As directed cholecalciferol (vitamin D3) 50 mcg PO DAILY Jardiance (empagliflozin) 25 mg PO DAILY NS lancets Test blood sugar twice per day lisinopril 5 mg PO DAILY metformin 1,000 mg PO BIDWMEAL 3 months Tobacco use date assessed: 10/04/24 Dental Screening Dental Screen Date: 10/04/24 Did you have a dental visit in the last 12 months?: Yes Did you have a dental problem in the last 6 months where you did not have access to dental care?: No Was dental information given to patient?: Patient has dentist HPI 3 months follow up HPI Details - The patient is a 64-year-old male pres enting for a follow up on hisType 2 Diabetes Mellitus . he states that his blood sugar has been fluctuating lately, running between 160-180 mg/dL with peaks at 200 mg/dL. - He has been taking apple cider vinega r regularly, but has started cutting down due to its sugar content . He also drinks whiskey on a daily basis. - Hypercholesterolemia: He observes impr ovement in cholesterol and triglyceride levels by incorporating oatmeal, blueberries, and seeds, while strategically cutting down on junk food. - Anemia: The patient has been previousl y borderline anemic, potentially related to bleeding hemorrhoids, need evaluation due to persistent bleeding. - He had an adverse reaction to a COVID vaccine and has subsequently decided against further vaccinations. [facility] Medical History Immunization refused Diabetes mellitus with hyperglycemia, without long-term current use of insulin Polyarthralgia Refused influenza vaccine History of vitamin D deficiency History of deep venous thrombosis (DVT) of distal vein of right lower extremity Diabetic retinopathy screening Erectile dysfunction Essential hypertension Mixed dyslipidemia Surgical History Hx of colonoscopy History of umbilical hernia Family History Father CAD (coronary artery disease) Myocardial infarction CVD (cardiovascular disease) Mother Esophageal cancer Brother Bladder cancer Brother No problems noted. Brother No problems noted. Brother No problems noted. Daughter No problems noted. Daughter No problems noted. Social History Housing: House Alcohol intake: current Alcohol intake frequency: holidays/special occasions only Patient Tobacco Use Status: Never used Tobacco e-Cigarette/Vaping Use: Never Used service: No Current occupational status: employed Cognitive needs: No Hearing needs: No Vision needs: Yes Questionnaire PHQ-9 Over the last 2 weeks, how often have you been bothered by any of the following problems? 1. Little interest or pleasure in doing things: not at all 2. Feeling down, depressed, or hopeless: not at all 3. Trouble falling or staying asleep, or sleeping too much: several days 4. Feeling tired or having little energy: not at all 5. Poor appetite or overeating: not at all 6. Feeling bad about yourself - or that you are a failure or have let yourself or your family down: not at all 7. Trouble concentrating on things, such as reading the newspaper or watching television: not at all 8. Moving or speaking so slowly that other people could have noticed. Or the opposite - being so fidgety or restless that you have been moving around a lot more than usual: not at all 9. Thoughts that you would be better off or of hurting yourself in some way: not at all Total score: 1 Depression Screening Interpretation: Negative Depression Screening Done: Yes 15125 - PHQ-9 Billing: Yes Source: Developed by Drs. Jason Couch, Jeannine Sepulveda, Alan Fitch and colleagues, with an educational pat from [employer] Thrive Questionnaire Date Thrive assessed: 10/04/24 I am a: Patient What is your living situation today?: I have a steady place to live Within the past 12 months, did the food you bought not last and you didn't have the money to get more?: Never true Within the past 12 months, did you worry whether your food would run out before you got money to buy more?: Never true Do you have trouble paying for medicines?: No Do you have trouble getting transportation to medical appointments?: No Do you have trouble paying your heating and electricity bill?: No Do you have trouble taking care of your child, family member or friend?: No Do you have trouble with day-to-day activities such as bathing, preparing meals, shopping, managing finances, etc.?: No Are you currently unemployed and looking for a job?: No Are you interested in more education?: No Please select the resources that you would like help with: None Currently or been in a relationship where the following occur: No concerns reported THRIVE Score: 0 AUDIT C Alcohol Use Questionnaire (AUDIT-C) 1. How often do you have a drink containing alcohol?: 2-3 times a week 2. How many drinks containing alcohol do you have on a typical day when you are drinking?: 5 or 6 3. How often do you have six or more drinks on one occasion?: Less than monthly Total Score: 6 LASHAUN-7 AMB Questionnaire LASHAUN-7 Date LASHAUN - 7 assessed: 10/04/24 Feeling nervous, anxious, or on edge: 0 = Not at all Not being able to stop or control worryin = Not at all Worrying too much about different things: 0 = Not at all Trouble relaxin = Not at all Being so restless that it is hard to sit still: 0 = Not at all Becoming easily annoyed or irritable: 0 = Not at all Feeling afraid as if something awful might happen: 0 = Not at all Total LASHAUN-7 score (0-4 normal; 5-9 mild; 10-14 moderate; 15-21 severe): 0 Source: Developed by Drs. Jason Couch, Jeannine Sepulveda, Alan Fitch and colleagues, with an educational pat from [employer] LASHAUN-7 Assessment Billing LASHAUN-7 Assessment Tool: LASHAUN-7 Assessment 85265 Review of Systems Const Denies fatigue, Denies fever(s), Denies headache(s) and Denies weakness Eyes Details: No retinopathy per patient, sees Dr. Grande yearly Denies change in vision, Denies eye discharge and Denies itchy eyes ENT Denies dizziness, Denies headache(s), Denies nasal congestion, Denies nasal discharge and Denies sore throat Card Denies chest pain, Denies lightheadedness, Denies palpitations and Denies dyspnea Resp Denies chest congestion, Denies cough, Denies dyspnea and Denies wheezing GI Denies abdominal pain, Denies change in bowel habits and Denies heartburn Denies dysuria, Denies urinary frequency and Denies urinary urgency Musc Reports as per HPI Skin/Breast Denies lesions and Denies rash Neuro Denies dizziness, Denies headache(s) and Denies weakness Psych Reports no additional complaints Endo Denies fatigue, Denies polydipsia, Denies polyuria and Denies palpitations Gabriele/Lymph Denies easy bruising Aller/Immun Denies itchy eyes, Denies seasonal rhinorrhea and Denies wheezing Physical exam (Primary Care) Vital Signs: Last Vital Signs Temp 98.6 F 10/04/24 12:11 Pulse 78 10/04/24 12:11 Resp 18 10/04/24 12:11 BP 104/60 10/04/24 12:11 Pulse Ox 97 10/04/24 12:11 Oxygen Delivery Method Room Air 10/04/24 12:11 BMI result Body Mass Index 26.4 Tobacco/Smoking Status: Tobacco use Status Tobacco use date assessed 10/04/24 10/04/24 12:15 Patient Tobacco Use Status Never used Tobacco 10/04/24 12:11 e-Cigarette/Vaping Use Never Used 10/04/24 12:11 PHQ-9: PHQ-9 Score PHQ-9: Total score 1 10/04/24 12:23 Depression Screening Interpretation: Negative Thrive Assessment: Date of Thrive Assessment Date Thrive assessed 10/04/24 10/04/24 12:15 Currently or been in a relationship where the following occur: No concerns reported Const General: comfortable, no acute distress and alert Orientation/consciousness: patient oriented x3 HENMT Ears: external ears normal, TM's normal bilaterally and EAC's normal General nose exam: Normal external nose present Mouth: moist mucous membranes Eyes General: appearance normal, both eyes and all related structures Neck Neck: Yes full ROM, Yes no lymphadenopathy and Yes supple Resp Effort & Inspection: normal respiratory effort and able to speak in complete sentences Auscultation: clear to auscultation bilaterally Cardio Rate: regular rate Rhythm: regular rhythm Heart sounds: S1 normal heart sound present and S2 normal heart sound present GI Palpation (GI): Soft to palpation, nontender and no masses Auscultation: normal bowel sounds General: Yes no CVA tenderness Back/Spine/Pelvis Back: no CVA tenderness Skin General skin exam: no rashes or lesions noted Neuro General: patient oriented x3, gait normal, tone normal, moves all extremities, Normal light touch and pain sensation and no focal motor deficits Cranial nerves: Yes CN's II-XII intact bilaterally Cognition (Neuro): normal cognition Extrem General: Yes full ROM, Yes no joint enlargement, Yes no clubbing, cyanosis or edema and Yes no calf tenderness Psych Appearance: grossly normal and well kempt Mental Status: mental status grossly normal Speech and movement: Normal speech and movement present Affect: normal affect Results Reviewed Results Reviewed: Laboratory Tests 06/28/24 09/29/24 12:16 09:45 Estimat Average Glucose 166 Hgb A1c (Clinic) 7.5 H Hemoglobin A1c % 7.4 H Name: Kevin Martin Age/Sex: 64/M : 1960 Unit#: [id number] Attend Dr: Daksha Mendenhall MD Re09/29/24 Status: DEP REF Location: [facility] Disch: SPEC : [id number] MELANY: 09/29/24 STATUS: COMP REQ : [id number] RECD: 09/29/[address]: Daksha Mendenhall MD COMP: 09/29/24 ENTERED: 09/29/[address]: ORDERED: AST, ALT, Lipid Panel Test Result Flag Reference AST (GOT) 22 5-37 U/L ALT (GPT) 18 0-40 U/L Triglyceride 195 H <150 mg/dL Desirable Triglyceride: less than 150 mg/dL Borderline High Triglyceride 150-199 mg/dL High Triglyceride: 200-499 mg/dL Very High Triglyceride: greater than or equal to 5OO mg/dL Cholesterol 173 <200 mg/dL Desirable Cholesterol: less than 200 mg/dL Borderline High Cholesterol: 200-239 mg/dL High Cholesterol: greater than 239 mg/dL LDL Calculated 100 H <100 mg/dL Desirable LDL: less than 100 mg/dL Near Optimal/Above Optimal LDL: 110-129 mg/dL Borderline High LDL: 130-159 mg/dL High LDL: 160-189 mg/dL Very High LDL: greater than or equal to 190 mg/dL HDL 34 L >40 mg/dL Desirable HDL: greater than 40 mg/dL Note: This HDL assay may give artificially low results in patients with liver disease. Coding Level of Care Code Est Pt Level 4 (61525) Complex EM visit Add On G2211 Diagnoses Mixed dyslipidemia E78.2 Essential hypertension I10 Type 2 diabetes mellitus with hyperglycemia, without long-term current use of insulin E11.65 Diabetes mellitus type: type 2 Additional Codes PHQ-9 - 02499 - PHQ-9 Billing: Yes ([id number]) LASHAUN-7 Assessment Billing - LASHAUN-7 Assessment Tool: LASHAUN-7 Assessment 51400 ([id number]) Assessment & Plan Assessment & Plan (1) Mixed dyslipidemia: Code(s): E78.2 - Mixed hyperlipidemia Category: Medical Plan: Reviewed recent fasting lipid profile with patient with borderline LDL cholesterol level and elevated triglycerides . Continue atorvastatin 20 mg daily and stressed importance of diabetes control to lower triglyceride levels stressed importance of adherence to low-cholesterol diet and regular exercise, at least 30 minutes 3 to 4 times a week and cutting back on alcohol intake. Advised patient to make healthy food choices, eat more fruits, vegetables, whole grains, wild caught fish and low-fat dairy. Limit amount of meat and fried or fatty food products, as well as processed foods and fast foods. Follow-up scheduled with repeat fasting lipid panel in 3 months. (2) Essential hypertension: Code(s): I10 - Essential (primary) hypertension Category: Medical Plan: Blood pressure at goal of less than 130/80. Continue with current medication. Reinforced importance of following a low sodium diet, getting regular exercise, and lowering stress levels. (3) Diabetes mellitus with hyperglycemia, without long-term current use of insulin: Code(s): E11.65 - Type 2 diabetes mellitus with hyperglycemia Category: Medical Qualifiers: Diabetes mellitus type: type 2 Qualified Code(s): E11.65 - Type 2 diabetes mellitus with hyperglycemia Plan: Recent lab results reviewed with patient, with sugar and hemoglobin A1c improving but still not at goal of less than 7% will continue on metformin, Jardiance, at the same dose. Reinforced diabetic diet and regular exercise with patient. Strongly advised to stop alcohol intake Counseled regarding importance of yearly diabetes retinopathy screening. Patient advised to inspect feet daily, for any signs of injury, callus or infection. Compliance with diet and regular exercise again stressed. Blood pressure goal is less than 130/80, goal LDL is less than 100 and goal hemoglobin A1c is less than 7% follow-up appointment made in--3-months, after fasting labs done. Orders: Orders Lipid Panel 12/30/24 E11.65 - Type 2 diabetes mellitus with hyperglycemia, E78.2 - Mixed hyperlipidemia, I10 - Essential (primary) hypertension Hemoglobin A1c 12/30/24 E11.65 - Type 2 diabetes mellitus with hyperglycemia, E78.2 - Mixed hyperlipidemia, I10 - Essential (primary) hypertension Alanine Aminotransferase 12/30/24 E11.65 - Type 2 diabetes mellitus with hyperglycemia, E78.2 - Mixed hyperlipidemia, I10 - Essential (primary) hypertension Aspartate Amino Transferase 12/30/24 E11.65 - Type 2 diabetes mellitus with hyperglycemia, E78.2 - Mixed hyperlipidemia, I10 - Essential (primary) hypertension
== END 2024-10-04 12:36 | disposition home or self-care (01) ==
PROVIDERS: PCP Internal Medicine; Visit Provider Internal Medicine
DX: E78.2 Mixed hyperlipidemia (principal); I10 Essential (primary) hypertension; E11.65 Type 2 diabetes mellitus with hyperglycemia

== ENCOUNTER → 2024-10-04 11:24 | Outpatient (BNVA) | payer BC, SELFPAY | PROVIDERS: PCP Internal Medicine; Visit Provider Internal Medicine | DX: E78.2 Mixed hyperlipidemia (principal); I10 Essential (primary) hypertension; E11.65 Type 2 diabetes mellitus with hyperglycemia; Z79.899 Other long term (current) drug therapy | CPT/HCPCS: 96127 ==

== ENCOUNTER 2024-12-08 08:17 | Outpatient (REF) | payer BC, SELFPAY ==
--- OUTSIDE RECORDS SUMMARY | 2024-12-08 08:27 | XMS_ITS | Patient Health Record ---
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 the day before the procedure for 1 day 12/11/2022 Active Atorvastatin Calcium Active metFORMIN HCl Active Immunizations Vaccine Route Administration Date Status Comme nts Influenza Unknown 12/11/2022 Refused Problems Problem Type SNOMED Code ICD Code Onset Dates Problem Status W/U Status Risk Notes Problem 877452978 Colon cancer screening (Z12.11) Active confirmed Problem 820090919 Encounter for other preprocedural examination (Z01.818) Active confirmed Problem 872977434 penitentiary (current) use of aspirin (Z79.82) Active confirmed Problem 554311269 Long-term curren t use of high risk medication other than anticoagulant (Z79.899) Active confirmed Problem 091487970613046 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 (Z79.84) Active confirmed Problem 511010624 FH: colon cancer (Z80.0) Active confirmed Plan Of Treatment Future Test Test Name Order Date COLONOSCOPY 10/02/2016 COLONOSCOPY 12/11/2022 Insurance Providers Payer Name Payer Address Payer Phone Subscriber Number Group Number Insured Name Patient Relationship to Insured Coverage Start Date Coverage End Date [facility] PROFESSIONAL CLAIMS [address] [place] [address] [id number] SHERRY CAREY Self - patient is the insured Medical (General) History Medical History History ICD Code Colonoscopy 12/16, lymphoid/h yperplastic polyps, five-year followup due to family history elevated cholesterol DVT following a torn calf muscle umbilical hernia diabetes mellitus Surgical History Surgery Date(Month/Year) hernia repair
[2024-12-08 11:06] LABS: Estimated Average Glucose 134 mg/dL; Hemoglobin A1c % 6.3 % (<6.0); Total Hemoglobin (HGBA1C) 3931.7169 umol/L
[2024-12-08 11:17] LABS: Alanine Aminotransferase 18 U/L (0-40); Aspartate Amino Transferase 17 U/L (5-37); Cholesterol 170 mg/dL (<200); HDL Cholesterol 42 mg/dL (>40); LDL Cholesterol Calculated 109 mg/dL (<100); Triglycerides 97 mg/dL (<150)
== END 2024-12-08 08:18 | disposition home or self-care (01) ==
LOC: HO.HMGCLDS 08:17
PROVIDERS: PCP Internal Medicine; Visit Provider Internal Medicine
DX: E11.65 Type 2 diabetes mellitus with hyperglycemia (principal); I10 Essential (primary) hypertension; E78.2 Mixed hyperlipidemia
CPT/HCPCS: 36415; 80061; 83036; 84450; 84460

== ENCOUNTER 2024-12-14 12:33 | Outpatient (AMB) | payer BC, SELFPAY ==
[2024-12-14 13:16] VITALS: BP 112/70; PULSE 73; RESP 15; TEMP 36.9; O2SAT 95; BMI 25.2
--- NOTE | 2024-12-14 13:16 | MHC.PC.OV ---
Vital Signs 12/14/24 13:16 Height 5 ft 11 in Weight 181 lb BMI 25.2 BP 112/70 Blood Pressure Location Rt brachial Position Sitting Respiration 15 Pulse 73 Pulse Source Pulse Oximeter Temp 98.4 F Temp Source Oral Pulse Oximetry (%) 95 Oxygen Delivery Method Room Air Intake Visit Reasons: Annual PE Intake Note: Pt is here today for his PE: Last colonoscopy 12/25/22 Allergies minoxidil [From Rogaine] Allergy (Unknown, Verified 12/14/24 13:25) rash/swelling Medication List - Last Reconciled 12/14/24 by Daksha Mendenhall MD atorvastatin 20 mg PO DAILY blood sugar diagnostic (Contour Next Test Strips) Test blood sugar twice per day blood-glucose meter (Contour Next Gen Meter) As directed cholecalciferol (vitamin D3) 50 mcg PO DAILY Jardiance (empagliflozin) 25 mg PO DAILY NS lancets Test blood sugar twice per day lisinopril 5 mg PO DAILY metformin 1,000 mg PO BIDWMEAL 3 months Tobacco use date assessed: 12/14/24 Dental Screening Dental Screen Date: 12/14/24 Did you have a dental visit in the last 12 months?: Yes Did you have a dental problem in the last 6 months where you did not have access to dental care?: No Was dental information given to patient?: Patient has dentist HPI Annual PE HPI Details 64-year-old male here today for his physical exam. He has essential hypertension currently stable controlled on lisinopril 5 mg taken once a day. Diabetes mellitus stable and controlled on metformin 1000 mg taken 1 tablet twice a day together with Jardiance 25 mg daily. Latest fasting labs showed his hemoglobin A1c at 6.3% with no microalbuminuria present. Latest fasting lipids are within normal limits, currently on atorvastatin 20 mg daily. Up-to-date with his screening colonoscopy done by Dr. Pitt due again in 2027. [facility] Medical History Immunization refused Diabetes mellitus with hyperglycemia, without long-term current use of insulin Polyarthralgia Refused influenza vaccine History of vitamin D deficiency History of deep venous thrombosis (DVT) of distal vein of right lower extremity Diabetic retinopathy screening Erectile dysfunction Essential hypertension Mixed dyslipidemia Surgical History Hx of colonoscopy History of umbilical hernia Family History Father CAD (coronary artery disease) Myocardial infarction CVD (cardiovascular disease) Mother Esophageal cancer Brother Bladder cancer Brother No problems noted. Brother No problems noted. Brother No problems noted. Daughter No problems noted. Daughter No problems noted. Social History Housing: House Alcohol intake: current Alcohol intake frequency: holidays/special occasions only Patient Tobacco Use Status: Never used Tobacco e-Cigarette/Vaping Use: Never Used service: No Current occupational status: employed Cognitive needs: No Hearing needs: No Vision needs: Yes Questionnaire PHQ-9 Over the last 2 weeks, how often have you been bothered by any of the following problems? Depression Screening Interpretation: Negative Depression Screening Done: Yes Source: Developed by Drs. Jason Couch, Jeannine Sepulveda, Alan Fitch and colleagues, with an educational pat from [email or web address] Thrive Questionnaire Date Thrive assessed: 10/04/24 I am a: Patient What is your living situation today?: I have a steady place to live Within the past 12 months, did the food you bought not last and you didn't have the money to get more?: Never true Within the past 12 months, did you worry whether your food would run out before you got money to buy more?: Never true Do you have trouble paying for medicines?: No Do you have trouble getting transportation to medical appointments?: No Do you have trouble paying your heating and electricity bill?: No Do you have trouble taking care of your child, family member or friend?: No Do you have trouble with day-to-day activities such as bathing, preparing meals, shopping, managing finances, etc.?: No Are you currently unemployed and looking for a job?: No Are you interested in more education?: No Please select the resources that you would like help with: None Currently or been in a relationship where the following occur: No concerns reported THRIVE Score: 0 LASHAUN-7 AMB Questionnaire LASHAUN-7 Date LASHAUN - 7 assessed: 10/04/24 Source: Developed by Drs. Jason Couch, Jeannine Sepulveda, Alan Fitch and colleagues, with an educational pat from [email or web address] Review of Systems Const Denies fatigue, Denies fever(s), Denies headache(s) and Denies weakness Eyes Details: No retinopathy per patient, sees Dr. Grande yearly Denies change in vision, Denies eye discharge and Denies itchy eyes ENT Denies dizziness, Denies headache(s), Denies nasal congestion, Denies nasal discharge and Denies sore throat Card Denies chest pain, Denies lightheadedness, Denies palpitations and Denies dyspnea Resp Denies chest congestion, Denies cough, Denies dyspnea and Denies wheezing GI Denies abdominal pain, Denies change in bowel habits and Denies heartburn Denies dysuria, Denies urinary frequency and Denies urinary urgency Musc Reports as per HPI Skin/Breast Denies lesions and Denies rash Neuro Denies dizziness, Denies headache(s) and Denies weakness Psych Reports no additional complaints Endo Denies fatigue, Denies polydipsia, Denies polyuria and Denies palpitations Gabriele/Lymph Denies easy bruising Aller/Immun Denies itchy eyes, Denies seasonal rhinorrhea and Denies wheezing Physical exam (Primary Care) Vital Signs: Last Vital Signs Temp 98.4 F 12/14/24 13:16 Pulse 73 12/14/24 13:16 Resp 15 12/14/24 13:16 BP 112/70 12/14/24 13:16 Pulse Ox 95 12/14/24 13:16 Oxygen Delivery Method Room Air 12/14/24 13:16 BMI result Body Mass Index 25.2 Tobacco/Smoking Status: Tobacco use Status Tobacco use date assessed 12/14/24 12/14/24 13:18 Patient Tobacco Use Status Never used Tobacco 12/14/24 13:18 e-Cigarette/Vaping Use Never Used 12/14/24 13:18 Depression Screening Interpretation: Negative Thrive Assessment: Date of Thrive Assessment Date Thrive assessed 10/04/24 12/14/24 13:18 Currently or been in a relationship where the following occur: No concerns reported Advance Care Planning discussion: Completed/Scanned Date of discussion: 12/14/24 Who was present: Patient Forms completed: Health Care Proxy Time spent: 16-45 minutes Actual minutes spent: 2 Const General: comfortable, no acute distress and alert Orientation/consciousness: patient oriented x3 HENMT Ears: external ears normal, TM's normal bilaterally and EAC's normal General nose exam: Normal external nose present Mouth: moist mucous membranes Eyes General: appearance normal, both eyes and all related structures Neck Neck: Yes full ROM, Yes no lymphadenopathy and Yes supple Resp Effort & Inspection: normal respiratory effort and able to speak in complete sentences Auscultation: clear to auscultation bilaterally Cardio Rate: regular rate Rhythm: regular rhythm Heart sounds: S1 normal heart sound present and S2 normal heart sound present GI Palpation (GI): Soft to palpation, nontender and no masses Auscultation: normal bowel sounds General: Yes no CVA tenderness Back/Spine/Pelvis Back: no CVA tenderness Skin General skin exam: no rashes or lesions noted Neuro General: patient oriented x3, gait normal, tone normal, moves all extremities, Normal light touch and pain sensation and no focal motor deficits Cranial nerves: Yes CN's II-XII intact bilaterally Cognition (Neuro): normal cognition Extrem General: Yes full ROM, Yes no joint enlargement, Yes no clubbing, cyanosis or edema and Yes no calf tenderness Psych Appearance: grossly normal and well kempt Mental Status: mental status grossly normal Speech and movement: Normal speech and movement present Affect: normal affect Results Reviewed Results Reviewed: Laboratory Tests 09/29/24 12/08/24 09:50 08:25 Estimat Average Glucose 134 Hemoglobin A1c % 6.3 H Urine Creatinine 85.87 Urine Microalbumin 15.0 Microalb/Creat Ratio 17.4 Name: Kevin Martin Age/Sex: 64/M : 1960 Unit#: [id number] Attend Dr: Daksha Mendenhall MD Re12/08/24 Status: DEP REF Location: [facility] Disch: SPEC : [id number] MELANY: 12/08/24 STATUS: COMP REQ : [id number] RECD: 12/08/[address]: Daksha Mendenhall MD COMP: 12/08/24 ENTERED: 12/08/[address]: ORDERED: AST, ALT, Lipid Panel Test Result Flag Reference AST (GOT) 17 5-37 U/L ALT (GPT) 18 0-40 U/L Triglyceride 97 <150 mg/dL Desirable Triglyceride: less than 150 mg/dL Borderline High Triglyceride 150-199 mg/dL High Triglyceride: 200-499 mg/dL Very High Triglyceride: greater than or equal to 5OO mg/dL Cholesterol 170 <200 mg/dL Desirable Cholesterol: less than 200 mg/dL Borderline High Cholesterol: 200-239 mg/dL High Cholesterol: greater than 239 mg/dL LDL Calculated 109 H <100 mg/dL Desirable LDL: less than 100 mg/dL Near Optimal/Above Optimal LDL: 110-129 mg/dL Borderline High LDL: 130-159 mg/dL High LDL: 160-189 mg/dL Very High LDL: greater than or equal to 190 mg/dL HDL 42 >40 mg/dL Desirable HDL: greater than 40 mg/dL Note: This HDL assay may give artificially low results in patients with liver disease. Coding Level of Care Code Est Pt Prev Care 40-64y(79848) Diagnoses Annual visit for general adult medical examination with abnormal findings Z00.01 Type 2 diabetes mellitus with hyperglycemia, without long-term current use of insulin E11.65 Diabetes mellitus type: type 2 Essential hypertension I10 Mixed dyslipidemia E78.2 Advanced directives, counseling/discussion Z71.89 Additional Codes Vital Signs *Quality* - Advance Care Planning discussion: Completed/Scanned ([id number]) Vital Signs *Quality* - Time spent: 16-45 minutes ([id number]) Assessment & Plan Assessment & Plan (1) Annual visit for general adult medical examination with abnormal findings: Code(s): Z00.01 - Encounter for general adult medical examination with abnormal findings Plan: Reviewed recent fasting lab results with patient.. Recommended dental visit every 6 months and continue with yearly eye exams, sees Dr. Grande Take adequate calcium in diet and vitamin-D 3 at 2000 IU per cap once a day, in addition to weight-bearing exercises to help maintain good muscle tone and weight control. Instructed to do self-testicular exam check for any mass, up-to-date with his screening colonoscopy due again in 2027 (2) Diabetes mellitus with hyperglycemia, without long-term current use of insulin: Code(s): E11.65 - Type 2 diabetes mellitus with hyperglycemia Category: Medical Qualifiers: Diabetes mellitus type: type 2 Qualified Code(s): E11.65 - Type 2 diabetes mellitus with hyperglycemia Plan: Continue with Jardiance and metformin same dose (3) Essential hypertension: Code(s): I10 - Essential (primary) hypertension Category: Medical Plan: Continue on lisinopril 5 mg daily (4) Mixed dyslipidemia: Code(s): E78.2 - Mixed hyperlipidemia Category: Medical Plan: Continue atorvastatin 20 mg daily (5) Advanced directives, counseling/discussion: Code(s): Z71.89 - Other specified counseling Plan: Initiated the conversation about Advanced Directives. Advanced Directives help patients prepare for current and future decisions about their medical treatment and place of care. Discussed with patient that it is a process where a patients current condition and prognosis are reviewed, their wishes for information regarding their illness are elicited, and likely medical dilemmas are presented and options discussed. Healthcare proxy form completed today. The form can be amended as needed, reviewed yearly and make changes as needed Medications: Changed From metformin 1,000 mg PO BIDWMEAL 3 months 180 tabs 2RF To metformin 1,000 mg PO BIDWMEAL 180 tabs 4RF 3 months Refilled Jardiance (empagliflozin) 25 mg PO DAILY 90 tabs 4RF NS
--- OUTSIDE RECORDS SUMMARY | 2024-12-14 15:20 | XMS_ITS | Patient Health Record ---
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 (Z79.82) Active confirmed Problem 647008348 Long-term curren t use of high risk medication other than anticoagulant (Z79.899) Active confirmed Problem [id number] correction (current) use of oral hypoglycemic drugs (Z79.84) Active confirmed Problem 108313799 FH: colon cancer (Z80.0) Active confirmed Plan Of Treatment Future Test Test Name Order Date COLONOSCOPY 10/02/2016 COLONOSCOPY 12/11/2022 Insurance Providers Payer Name Payer Address Payer Phone Subscriber Number Group Number Insured Name Patient Relationship to Insured Coverage Start Date Coverage End Date [facility] [employer] CLAIMS [address] [place] [address] [phone] [id number] SHERRY CAREY Self - patient is the insured Medical (General) History Medical History History ICD Code Colonoscopy 12/16, lymphoid/h yperplastic polyps, five-year followup due to family history elevated cholesterol DVT following a torn calf muscle umbilical hernia diabetes mellitus Surgical History Surgery Date(Month/Year) hernia repair
== END 2024-12-14 13:46 | disposition home or self-care (01) ==
LOC: HO.HMCC 12:33
PROVIDERS: PCP Internal Medicine; Visit Provider Internal Medicine
DX: Z00.01 Encounter for general adult medical examination with abnormal findings (principal); E11.65 Type 2 diabetes mellitus with hyperglycemia; I10 Essential (primary) hypertension; E78.2 Mixed hyperlipidemia; Z71.89 Other specified counseling; Z00.00 Encounter for general adult medical examination without abnormal findings

== ENCOUNTER → 2024-12-14 12:33 | Outpatient (BNVA) | payer BC, SELFPAY | PROVIDERS: PCP Internal Medicine; Visit Provider Internal Medicine ==

== ENCOUNTER 2025-04-11 08:18 | Outpatient (REF) | payer BC, SELFPAY ==
--- OUTSIDE RECORDS SUMMARY | 2025-04-11 08:37 | XMS_ITS | Patient Health Record ---
Author Organization [facility] Address [address] [place] [address] Care Team Providers Care [employer] Salesperson Name Role Phone Abdirashid MIGUEL, Daksha Primary Care Provider Roberto Lima Jr [phone] Allergies No Known Allergies Reason For Referral [...] Problem Status W/U Status Risk Notes Problem [id number] Colon cancer screening (Z12.11) Active confirmed Problem 321474000 Encounter for other preprocedural examination (Z01.818) Active confirmed Problem 615011513 shelter (current) use of aspirin (Z79.82) Active confirmed Problem 029200319 Long-term curren t use of high risk medication other than anticoagulant (Z79.899) Active confirmed Problem [id number] 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 drugs (Z79.84) Active confirmed Problem 636108252 FH: colon cancer (Z80.0) Active confirmed Plan Of Treatment Future Test Test Name Order Date COLONOSCOPY 10/02/2016 COLONOSCOPY 12/11/2022 Insurance Providers Payer Name Payer Address Payer Phone Subscriber Number Group Number Insured Name Patient Relationship to Insured Coverage Start Date Coverage End Date [facility] PROFESSIONAL CLAIMS [address] [place] [address] [id number] SHERRY CAREY Self - patient is the insured Medical (General) History Medical History History ICD Code Colonoscopy 12/16, lymphoid/h yperplastic polyps, five-year followup due to family history elevated cholesterol DVT following a torn calf muscle umbilical hernia diabetes mellitus Surgical History Surgery Date(Month/Year) hernia repair
[2025-04-11 10:19] LABS: Hemoglobin A1C 160.7010 umol/L; Total Hemoglobin (HGBA1C) 3661.7874 umol/L
[2025-04-11 10:27] LABS: Alanine Aminotransferase 14 U/L (0-40); Anion Gap 10 (12-20); Aspartate Amino Transferase 21 U/L (5-37); Blood Urea Nitrogen 24 mg/dL (9-16); Calcium 8.8 mg/dL (8.4-10.2); Carbon Dioxide 25 mmol/L (22-29); Chloride 107 mmol/L (96-108); Cholesterol 173 mg/dL (<200); Estimated Glomerular Filt Rate > 60; HDL Cholesterol 44 mg/dL (>40); Potassium 4.1 mmol/L (3.3-5.1); Sodium 138 mmol/L (135-145); Triglycerides 123 mg/dL (<150)
== END 2025-04-11 08:19 | disposition home or self-care (01) ==
LOC: HO.HMGCLDS 08:18
PROVIDERS: PCP Internal Medicine; Visit Provider Internal Medicine
DX: E11.65 Type 2 diabetes mellitus with hyperglycemia (principal); E78.2 Mixed hyperlipidemia; I10 Essential (primary) hypertension
CPT/HCPCS: 36415; 80048; 80061; 83036; 84450; 84460

== ENCOUNTER 2025-04-14 13:26 | Outpatient (AMB) | payer BC, SELFPAY ==
[2025-04-14 13:28] VITALS: BP 112/60; PULSE 83; RESP 16; TEMP 36.9; O2SAT 96; BMI 25.1
--- NOTE | 2025-04-14 13:28 | A.OFFPC_ITS ---
Vital Signs 04/14/25 13:28 Height 5 ft 11 in Weight 180 lb BMI 25.1 BP 112/60 Blood Pressure Location Lt brachial Position Sitting Respiration 16 Pulse 83 Pulse Source Pulse Oximeter Temp 98.5 F Temp Source Oral Pulse Oximetry (%) 96 Oxygen Delivery Method Room Air Intake Visit Reasons: 3 months f/up Intake Note: Pt is here today for his 3mo. Allergies minoxidil (From Rogaine) Allergy (Unknown, Verified 04/14/25 13:56) rash/swelling Medication List - Last Reconciled 04/14/25 by Daksha Mendenhall MD atorvastatin 20 mg PO DAILY blood sugar diagnostic (Contour Next Test Strips) Test blood sugar twice per day blood-glucose meter (Contour Next Gen Meter) As directed cholecalciferol (vitamin D3) 50 mcg PO DAILY Jardiance (empagliflozin) 25 mg PO DAILY NS lancets Test blood sugar twice per day lisinopril 5 mg PO DAILY metformin 1,000 mg PO BIDWMEAL 3 months Tobacco use date assessed: 04/14/25 Dental Screening Dental Screen Date: 04/14/25 Did you have a dental visit in the last 12 months?: Yes Did you have a dental problem in the last 6 months where you did not have access to dental care?: No Was dental information given to patient?: Patient has dentist HPI 3 months f/up HPI Details - The patient is a 65-year-old male pres enting today for follow-up on his diabetes mellitus, and hyperlipidemia - Type 2 Diabetes Mellitus: The patient' s last hemoglobin A1c was 6.3%, with an average blood glucose level of 131 mg/dL over the past three months. The patient reports taking Jardiance, metformin, and lisinopril in the morning, and has adjusted the timing of Jardiance intake to the morning to avoid nocturia. - Hyperlipidemia: The patient's choleste rol levels are improving, though triglycerides remain elevated, possibly due to increased dietary intake of shellfish a recent vacation in [place]. The patient is currently on atorvastatin and reports no muscle pain associated with its use. - Cataract: The patient has been informe d of the early stages of cataract development, but no immediate intervention is required. The patient has good visual acuity and no signs of diabetic retinopathy. - Preventative care: The patient has bee n advised to undergo a skin cancer screening due to frequent sun exposure in [place]. [facility] Medical History Immunization refused Diabetes mellitus with hyperglycemia, without long-term current use of insulin Polyarthralgia Refused influenza vaccine History of vitamin D deficiency History of deep venous thrombosis (DVT) of distal vein of right lower extremity Diabetic retinopathy screening Erectile dysfunction Essential hypertension Mixed dyslipidemia Surgical History Hx of colonoscopy History of umbilical hernia Family History Father CAD (coronary artery disease) Myocardial infarction CVD (cardiovascular disease) Mother Esophageal cancer Brother Bladder cancer Brother No problems noted. Brother No problems noted. Brother No problems noted. Daughter No problems noted. Daughter No problems noted. Social History Housing: House Alcohol intake: current Alcohol intake frequency: holidays/special occasions only Patient Tobacco Use Status: Never used Tobacco e-Cigarette/Vaping Use: Never Used service: No Current occupational status: employed Cognitive needs: No Hearing needs: No Vision needs: Yes Questionnaire Thrive Questionnaire Date Thrive assessed: 10/04/24 I am a: Patient What is your living situation today?: I have a steady place to live Within the past 12 months, did the food you bought not last and you didn't have the money to get more?: Never true Within the past 12 months, did you worry whether your food would run out before you got money to buy more?: Never true Do you have trouble paying for medicines?: No Do you have trouble getting transportation to medical appointments?: No Do you have trouble paying your heating and electricity bill?: No Do you have trouble taking care of your child, family member or friend?: No Do you have trouble with day-to-day activities such as bathing, preparing meals, shopping, managing finances, etc.?: No Are you currently unemployed and looking for a job?: No Are you interested in more education?: No Please select the resources that you would like help with: None Currently or been in a relationship where the following occur: No concerns reported THRIVE Score: 0 LASHAUN-7 AMB Questionnaire LASHAUN-7 Date LASHAUN - 7 assessed: 10/04/24 Source: Developed by Drs. Jason Couch, Jeannine Sepulveda, Alan Fitch and colleagues, with an educational pat from [employer]. Review of Systems Const Denies fatigue, Denies fever(s), Denies headache(s) and Denies weakness Eyes Details: No retinopathy per patient, sees Dr. Grande yearly Denies change in vision, Denies eye discharge and Denies itchy eyes ENT Denies dizziness, Denies headache(s), Denies nasal congestion, Denies nasal discharge and Denies sore throat Card Denies chest pain, Denies lightheadedness, Denies palpitations and Denies dyspnea Resp Denies chest congestion, Denies cough, Denies dyspnea and Denies wheezing GI Denies abdominal pain, Denies change in bowel habits and Denies heartburn Denies dysuria, Denies urinary frequency and Denies urinary urgency Musc Reports no additional complaints Skin/Breast Denies lesions and Denies rash Neuro Denies dizziness, Denies headache(s) and Denies weakness Psych Reports no additional complaints Endo Denies fatigue, Denies polydipsia, Denies polyuria and Denies palpitations Gabriele/Lymph Denies easy bruising Aller/Immun Denies itchy eyes, Denies seasonal rhinorrhea and Denies wheezing Physical exam (Primary Care) Vital Signs: Last Vital Signs Temp 98.5 F 04/14/25 13:28 Pulse 83 04/14/25 13:28 Resp 16 04/14/25 13:28 BP 112/60 04/14/25 13:28 Pulse Ox 96 04/14/25 13:28 Oxygen Delivery Method Room Air 04/14/25 13:28 BMI result Body Mass Index 25.1 Tobacco/Smoking Status: Tobacco use Status Tobacco use date assessed 04/14/25 04/14/25 13:32 Patient Tobacco Use Status Never used Tobacco 04/14/25 13:29 e-Cigarette/Vaping Use Never Used 04/14/25 13:29 Thrive Assessment: Date of Thrive Assessment Date Thrive assessed 10/04/24 04/14/25 13:29 Currently or been in a relationship where the following occur: No concerns reported Const General: no acute distress and alert Orientation/consciousness: patient oriented x3 HENMT Ears: external ears normal, TM's normal bilaterally and EAC's normal General nose exam: Normal external nose present Mouth: moist mucous membranes Eyes General: appearance normal, both eyes and all related structures Neck Neck: Yes full ROM, Yes no lymphadenopathy and Yes supple Resp Effort & Inspection: normal respiratory effort and able to speak in complete sentences Auscultation: clear to auscultation bilaterally Cardio Rate: regular rate Rhythm: regular rhythm Heart sounds: S1 normal heart sound present and S2 normal heart sound present GI Palpation (GI): Soft to palpation, nontender and no masses Auscultation: normal bowel sounds General: Yes no CVA tenderness Back/Spine/Pelvis Back: no CVA tenderness Skin General skin exam: no rashes or lesions noted Neuro General: patient oriented x3, gait normal, tone normal, moves all extremities, Normal light touch and pain sensation and no focal motor deficits Cranial nerves: Yes CN's II-XII intact bilaterally Cognition (Neuro): normal cognition Extrem General: Yes full ROM, Yes no joint enlargement, Yes no clubbing, cyanosis or edema and Yes no calf tenderness Psych Appearance: grossly normal and well kempt Mental Status: mental status grossly normal Speech and movement: Normal speech and movement present Affect: normal affect Results Reviewed Results Reviewed: Laboratory Tests 04/11/25 08:22 Estimat Average Glucose 131 Hemoglobin A1c % 6.2 H Name: Kevin Martin Age/Sex: 65/M : 1960 Unit#: [id number] Attend Dr: Daksha Mendenhall MD Re04/11/25 Status: DEP REF Location: [facility] Disch: SPEC : [id number] MELANY: 04/11/25 STATUS: COMP REQ : [id number] RECD: 04/11/[address]: Daksha Mendenhall MD COMP: 04/11/25 ENTERED: 04/11/[address]: ORDERED: Met Prof Fast, AST, ALT, Lipid Panel Test Result Flag Reference Sodium 138 135-145 mmol/L Potassium 4.1 3.3-5.1 mmol/L CL 107 96-108 mmol/L CO2 25 22-29 mmol/L Gap 10 L 12-20 BUN 24 H 9-16 mg/dL Creat 0.91 0.5-1.4 mg/dL eGFR > 60 Chronic Kidney Disease: Estimated GFR < 60 mL/min/1.73m2 Severe Kidney Disease: Estimated GFR < 15 mL/min/1.73m2 FBS 111 H 60-99 mg/dL A fasting glucose from 100-125 mg/dl is considered impaired (pre-diabetes). CA 8.8 # 8.4-10.2 mg/dL AST (GOT) 21 5-37 U/L ALT (GPT) 14 0-40 U/L Triglyceride 123 <150 mg/dL Desirable Triglyceride: less than 150 mg/dL Borderline High Triglyceride 150-199 mg/dL High Triglyceride: 200-499 mg/dL Very High Triglyceride: greater than or equal to 5OO mg/dL Cholesterol 173 <200 mg/dL Desirable Cholesterol: less than 200 mg/dL Borderline High Cholesterol: 200-239 mg/dL High Cholesterol: greater than 239 mg/dL LDL Calculated 105 H <100 mg/dL Desirable LDL: less than 100 mg/dL Near Optimal/Above Optimal LDL: 110-129 mg/dL Borderline High LDL: 130-159 mg/dL High LDL: 160-189 mg/dL Very High LDL: greater than or equal to 190 mg/dL HDL 44 >40 mg/dL Desirable HDL: greater than 40 mg/dL Note: This HDL assay may give artificially low results in patients with liver disease. Coding Level of Care Code Est Pt Level 4 (20949) Complex EM visit Add On G2211 Diagnoses Screening for Malignant Neoplasm of Skin Z12.83 Mixed dyslipidemia E78.2 Essential hypertension I10 Type 2 diabetes mellitus with hyperglycemia, without long-term current use of i nsulin E11.65 Diabetes mellitus type: type 2 Assessment & Plan Assessment & Plan (1) Screening for Malignant Neoplasm of Skin: Code(s): Z12.83 - Encounter for screening for malignant neoplasm of skin (2) Mixed dyslipidemia: Code(s): E78.2 - Mixed hyperlipidemia Category: Medical (3) Essential hypertension: Code(s): I10 - Essential (primary) hypertension Category: Medical (4) Diabetes mellitus with hyperglycemia, without long-term current use of insulin: Code(s): E11.65 - Type 2 diabetes mellitus with hyperglycemia Category: Medical Qualifiers: Diabetes mellitus type: type 2 Qualified Code(s): E11.65 - Type 2 diabetes mellitus with hyperglycemia Plan continue current medication regimen with Jardiance, metformin, and lisinopril, ensuring Jardiance is taken in the morning to avoid nocturia. Regular monitoring of blood glucose levels is advised, with follow-up blood work scheduled for August to assess control. For Hyperlipidemia, the patient will continue atorvastatin therapy, with dietary modifications suggested to reduce triglyceride levels, particularly by limiting shellfish intake. Follow-up lipid panel is also scheduled for August. Regarding the cataract, regular eye examinations are recommended to monitor progression, with no immediate intervention required. The patient is advised to continue routine eye care to prevent diabetic retinopathy. Preventative care measures include a referral to [facility] for a skin cancer screening .The patient is encouraged to use sunscreen more frequently Patient was informed and verbally consented to the use of an ambient scribe for clinic note documentation during this visit. Orders: Orders Aspartate Amino Transferase 08/01/25.65 - Type 2 diabetes mellitus with hyperglycemia, E78.2 - Mixed hyperlipidemia, I10 - Essential (primary) hypertension, Z12.5 - Encounter for screening for malignant neoplasm of prostate Vitamin D 25-OH Total 08/01/25.65 - Type 2 diabetes mellitus with hyperglycemia, E78.2 - Mixed hyperlipidemia, I10 - Essential (primary) hypertension, Z12.5 - Encounter for screening for malignant neoplasm of prostate PSA,Total (Free>4and<10) 08/01/25.65 - Type 2 diabetes mellitus with hyperglycemia, E78.2 - Mixed hyperlipidemia, I10 - Essential (primary) hypertension, Z12.5 - Encounter for screening for malignant neoplasm of prostate Lipid Panel 08/01/25 E11.65 - Type 2 diabetes mellitus with hyperglycemia, E78.2 - Mixed hyperlipidemia, I10 - Essential (primary) hypertension, Z12.5 - Encounter for screening for malignant neoplasm of prostate Hemoglobin A1c 08/01/25 E11.65 - Type 2 diabetes mellitus with hyperglycemia, E78.2 - Mixed hyperlipidemia, I10 - Essential (primary) hypertension, Z12.5 - Encounter for screening for malignant neoplasm of prostate Alanine Aminotransferase 08/01/25 E11.65 - Type 2 diabetes mellitus with hyperglycemia, E78.2 - Mixed hyperlipidemia, I10 - Essential (primary) hypertension, Z12.5 - Encounter for screening for malignant neoplasm of prostate Basic Metabolic Panel Fasting 08/01/25 E11.65 - Type 2 diabetes mellitus with hyperglycemia, E78.2 - Mixed hyperlipidemia, I10 - Essential (primary) hypertension, Z12.5 - Encounter for screening for malignant neoplasm of prostate Referrals Dermatology Referral Z12.83 - Encounter for screening for malignant neoplasm of skin Medications: Refilled atorvastatin 20 mg PO DAILY 90 tabs 4RF lisinopril 5 mg PO DAILY 90 tabs 5RF
--- OUTSIDE RECORDS SUMMARY | 2025-04-14 14:18 | XMS_ITS | Patient Health Record ---
Author Organization [facility] Address [address] [place] [address] Care Team Providers Care Tipple Repairer Name Role Phone Abdirashid MIGUEL, Daksha Primary [...] Problem Status W/U Status Risk Notes Problem 620324505 Colon cancer screening (Z12.11) Active confirmed Problem 686914505 Encounter for other preprocedural examination (Z01.818) Active confirmed Problem 932429816 detention (current) use of aspirin (Z79.82) Active confirmed Problem 104675568 Long-term curren t use of high risk medication other than anticoagulant (Z79.899) Active confirmed Problem [id number] 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) Active confirmed Problem 492816003 FH: colon cancer (Z80.0) Active confirmed Plan Of Treatment Future Test Test Name Order Date COLONOSCOPY 10/02/2016 COLONOSCOPY 12/11/2022 Insurance Providers Payer Name Payer Address Payer Phone Subscriber Number Group Number Insured Name Patient Relationship to Insured Coverage Start Date Coverage End Date [facility] [employer] [facility] [address] [place] [address] [id number] SHERRY CAREY Self - patient is the insured Medical (General) History Medical History History ICD Code Colonoscopy 12/16, lymphoid/h yperplastic polyps, five-year followup due to family history elevated cholesterol DVT following a torn calf muscle umbilical hernia diabetes mellitus Surgical History Surgery Date(Month/Year) hernia repair
== END 2025-04-14 14:12 | disposition home or self-care (01) ==
LOC: HO.HMCC 13:27
PROVIDERS: PCP Internal Medicine; Visit Provider Internal Medicine
DX: Z12.83 Encounter for screening for malignant neoplasm of skin (principal); E78.2 Mixed hyperlipidemia; I10 Essential (primary) hypertension; E11.65 Type 2 diabetes mellitus with hyperglycemia

== ENCOUNTER 2025-08-22 11:21 | Outpatient (REF) | payer BC, SELFPAY ==
--- OUTSIDE RECORDS SUMMARY | 2025-08-22 14:30 | XMS_ITS | Patient Health Record ---
Author Organization [facility] Address [address] [place] [address] Care Team Providers Care Director Life Name Role Phone Abdirashid MIGEUL, Daksha Primary Care Provider Roberto Lima Jr [phone] Allergies No Known Allergies Reason For Referral No Information Medications Medication SIG (Take, Route, Frequency, Duration) Notes Start Date End Date Status Lisinopril Active Jardiance 10 MG Tablet 1 tablet Orally O nce a day; Duration: 30 day(s) Active MiraLax (colon prep) 17 GM/SCOOP Powder mixed with Gatorade or Crystal Light Orally begin at 5:00 p.m. 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 Problems Problem Type SNOMED Code ICD Code Onset Dates Problem Status W/U Status Risk Notes Problem Colon cancer screening (623873874) Colon cancer screening (Z12.11) Active confirmed Problem Pre-procedure evaluation check (303591932) Encounter for other preprocedural examination (Z01.818) Active confirmed Problem Long-term current use of antiplatelet drug (658409640998158) 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 (Z79.82) Active confirmed Problem Long-term current use of drug therapy (595190845) Long-term current use of high risk medication other than anticoagulant (Z79.899) Active confirmed Problem Long-term current use of drug therapy (722317978) shelter (current) use of oral hypoglycemic drugs (Z79.84) Active confirmed Problem Family history of malignant neoplasm of gastrointestinal tract (936515868) FH: colon cancer (Z80.0) Active confirmed Plan Of Treatment Future Test Test Name Order Date COLONOSCOPY 10/02/2016 COLONOSCOPY 12/11/2022 Insurance Providers Payer Name Payer Address Payer Phone Subscriber Number Group Number Insured Name Patient Relationship to Insured Coverage Start Date Coverage End Date [facility] [employer] CLAIM[employer] [address] [place] [address] [id number] SHERRY CAREY Self - patient is the insured Medical (General) History Medical History History ICD Code Colonoscopy 12/16, lymphoid/h yperplastic polyps, five-year followup due to family history elevated cholesterol DVT following a torn calf muscle umbilical hernia diabetes mellitus Surgical History Surgery Date(Month/Year) hernia repair
[2025-08-22 14:59] LABS: PSA,Total (Free>4and<10) 1.37 ng/mL (0.00-4.00)
[2025-08-22 16:30] LABS: Alanine Aminotransferase 17 U/L (0-40); Anion Gap 12 (12-20); Aspartate Amino Transferase 22 U/L (5-37); Blood Urea Nitrogen 18 mg/dL (9-16); Calcium 9.1 mg/dL (8.4-10.2); Carbon Dioxide 25 mmol/L (22-29); Chloride 107 mmol/L (96-108); Cholesterol 167 mg/dL (<200); Estimated Glomerular Filt Rate > 60; HDL Cholesterol 44 mg/dL (>40); Potassium 4.5 mmol/L (3.3-5.1); Sodium 139 mmol/L (135-145); Triglycerides 100 mg/dL (<150)
== END 2025-08-22 11:22 | disposition home or self-care (01) ==
LOC: HO.HMGCLDS 11:21
PROVIDERS: PCP Internal Medicine; Visit Provider Internal Medicine
DX: I10 Essential (primary) hypertension (principal); E11.65 Type 2 diabetes mellitus with hyperglycemia; E78.2 Mixed hyperlipidemia; Z12.5 Encounter for screening for malignant neoplasm of prostate; Z13.21 Encounter for screening for nutritional disorder
CPT/HCPCS: 36415; 80048; 80061; 82306; 83036; 84153; 84450; 84460

== ENCOUNTER 2025-08-24 09:06 | Outpatient (AMB) | payer BC, SELFPAY ==
--- OUTSIDE RECORDS SUMMARY | 2025-08-24 09:12 | XMS_ITS | Patient Health Record ---
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 Problems Problem Type SNOMED Code ICD Code Onset Dates Problem Status W/U Status Risk Notes Problem Colon cancer screening (818010232) Colon cancer screening (Z12.11) Active confirmed Problem Pre-procedure evaluation check (772418255) Encounter for other preprocedural examination (Z01.818) Active confirmed Problem Long-term current use of antiplatelet drug (558894003626135) meterman (current) use of aspirin (Z79.82) Active confirmed Problem Long-term current use of drug therapy (319250319) Long-term current use of high risk medication other than anticoagulant (Z79.899) Active confirmed Problem Long-term current use of drug therapy (926677862) prison (current) use of oral hypoglycemic drugs (Z79.84) Active confirmed Problem Family history of malignant neoplasm of gastrointestinal tract (855147981) FH: colon cancer (Z80.0) Active confirmed Plan Of Treatment Future Test Test Name Order Date COLONOSCOPY 10/02/2016 COLONOSCOPY 12/11/2022 Insurance Providers Payer Name Payer Address Payer Phone Subscriber Number Group Number Insured Name Patient Relationship to Insured Coverage Start Date Coverage End Date [facility] [employer] CLAIM[employer] [address] [place] [address] [id number] SHERRY CAREY Self - patient is the insured Medical (General) History Medical History History ICD Code Colonoscopy 12/16, lymphoid/h yperplastic polyps, five-year followup due to family history elevated cholesterol DVT following a torn calf muscle umbilical hernia diabetes mellitus Surgical History Surgery Date(Month/Year) hernia repair
--- NOTE | 2025-08-24 09:19 | A.OFFPC_ITS ---
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 Allergies minoxidil (From Rogaine) Allergy (Unknown, Verified 08/24/25 09:44) rash/swelling Medication List - Last Reconciled 08/24/25 by Daksha Mendenhall MD atorvastatin 10 mg PO DAILY blood sugar diagnostic (Contour Next Test Strips) Test blood sugar twice per day blood-glucose meter (Contour Next Gen Meter) As directed cholecalciferol (vitamin D3) 50 mcg PO DAILY Jardiance (empagliflozin) 25 mg PO DAILY NS lancets Test blood sugar twice per day lisinopril 5 mg PO DAILY metformin 1,000 mg PO BIDWMEAL 3 months Tobacco use date assessed: 08/24/25 Dental Screening Dental Screen Date: 08/24/25 Did you have a dental visit in the last 12 months?: Yes Did you have a dental problem in the last 6 months where you did not have access to dental care?: No Was dental information given to patient?: Patient has dentist HPI f/u labs HPI Details The patient is a 65-year-old male with past medical history of dyslipidemia, diabetes and hypertension, presenting for a ffup visit Diabetes mellitus control is to be slipping, with latest hemoglobin A1c at 6.7% , which he attributes to diet during the holiday and reduced exercise due to cold weather. Recent lab lab also showed presence of microalbuminuria, though overall kidney function is not yet affected by his diabetes. Fasting lipids are within normal limits except for mildly elevated LDL cholesterol at 103 mg/dL . His liver function is , vitamin D , and his PSA were within normal limits He recently started taking tadalafil 8.5 mg daily, which he obtained from an online source. This medication is in a combination pill that also includes atorvastatin. He is also taking atorvastatin 20 mg but has been taking half a tablet only. [facility] Medical History Immunization refused Diabetes mellitus with hyperglycemia, without long-term current use of insulin Polyarthralgia Refused influenza vaccine History of vitamin D deficiency History of deep venous thrombosis (DVT) of distal vein of right lower extremity Diabetic retinopathy screening Erectile dysfunction Essential hypertension Mixed dyslipidemia Surgical History Hx of colonoscopy History of umbilical hernia Family History Father CAD (coronary artery disease) Myocardial infarction CVD (cardiovascular disease) Mother Esophageal cancer Brother Bladder cancer Brother No problems noted. Brother No problems noted. Brother No problems noted. Daughter No problems noted. Daughter No problems noted. Social History Housing: House Alcohol intake: current Alcohol intake frequency: holidays/special occasions only Patient Tobacco Use Status: Never used Tobacco e-Cigarette/Vaping Use: Never Used service: No Current occupational status: employed Cognitive needs: No Hearing needs: No Vision needs: Yes Questionnaire Thrive Questionnaire Date Thrive assessed: 09/27/24 What is your living situation today?: I have a steady place to live Within the past 12 months, did the food you bought not last and you didn't have the money to get more?: Never true Within the past 12 months, did you worry whether your food would run out before you got money to buy more?: Never true Do you have trouble paying for medicines?: No Do you have trouble getting transportation to medical appointments?: No Do you have trouble paying your heating and electricity bill?: No Do you have trouble taking care of your child, family member or friend?: No Do you have trouble with day-to-day activities such as bathing, preparing meals, shopping, managing finances, etc.?: No Are you currently unemployed and looking for a job?: No Are you interested in more education?: No Currently or been in a relationship where the following occur: No concerns reported THRIVE Score: 0 LASHAUN-7 AMB Questionnaire LASHAUN-7 Date LASHAUN - 7 assessed: 10/04/24 Source: Developed by Drs. Jason Couch, Jeannine Sepulveda, Alan Fitch and colleagues, with an educational pat from [employer]. Review of Systems Const Reports no additional complaints Eyes Details: Up-to-date with his diabetes eye exam,, sees Dr. Grande. Has an appointment already scheduled for December 2025 ENT Reports no additional complaints Card Denies chest pain, Denies chest pain with activity, Denies rapid heart rate, Denies irregular heart rhythm, Denies lightheadedness and Denies dyspnea Resp Denies dyspnea GI Reports no additional complaints Reports as per HPI Musc Denies abnormal gait, Denies numbness, Reports stiffness and Denies tingling Neuro Denies abnormal gait, Denies numbness, Denies tingling and Denies paresthesias Psych Reports no additional complaints Endo Reports no additional complaints Gabriele/Lymph Reports no additional complaints Aller/Immun Reports no additional complaints Physical exam (Primary Care) Vital Signs: Last Vital Signs Temp 97.8 F 08/24/25 09:20 Pulse 73 08/24/25 09:20 Resp 16 08/24/25 09:20 BP 112/70 08/24/25 09:20 Pulse Ox 98 08/24/25 09:20 Oxygen Delivery Method Room Air 08/24/25 09:20 BMI result Body Mass Index 25.5 Tobacco/Smoking Status: Tobacco use Status Tobacco use date assessed 08/24/25 08/24/25 09:26 Patient Tobacco Use Status Never used Tobacco 08/24/25 09:19 e-Cigarette/Vaping Use Never Used 08/24/25 09:19 Thrive Assessment: Date of Thrive Assessment Date Thrive assessed 09/27/24 08/24/25 09:19 Currently or been in a relationship where the following occur: No concerns reported Const General: no acute distress and alert Orientation/consciousness: patient oriented x3 HENMT Ears: external ears normal, TM's normal bilaterally and EAC's normal General nose exam: Normal external nose present Mouth: moist mucous membranes Eyes General: appearance normal, both eyes and all related structures Neck Neck: Yes full ROM, Yes no lymphadenopathy and Yes supple Resp Effort & Inspection: normal respiratory effort and able to speak in complete sentences Auscultation: clear to auscultation bilaterally Cardio Rate: regular rate Rhythm: regular rhythm Heart sounds: S1 normal heart sound present and S2 normal heart sound present GI Palpation (GI): Soft to palpation, nontender and no masses Auscultation: normal bowel sounds General: Yes no CVA tenderness Back/Spine/Pelvis Back: no CVA tenderness Skin General skin exam: no rashes or lesions noted Neuro General: patient oriented x3, gait normal, tone normal, moves all extremities, Normal light touch and pain sensation and no focal motor deficits Cranial nerves: Yes CN's II-XII intact bilaterally Cognition (Neuro): normal cognition Extrem General: Yes full ROM, Yes no joint enlargement, Yes no clubbing, cyanosis or edema and Yes no calf tenderness Psych Appearance: grossly normal and well kempt Mental Status: mental status grossly normal Speech and movement: Normal speech and movement present Affect: normal affect Results Reviewed Results Reviewed: Name: Kevin aMrtin Age/Sex: 65/M : 1960 Unit#: [id number] Attend Dr: Daksha Mendenhall MD Re08/22/25 Status: DEP REF Location: [facility] Disch: SPEC : [id number] MELANY: 08/22/25 STATUS: COMP REQ : [id number] RECD: 08/22/[address]: Daksha Mendenhall MD COMP: 08/22/25163 ENTERED: 08/22/[address]: ORDERED: Met Prof Fast, AST, ALT, Lipid Panel, Vitamin D 25-OH Test Result Flag Reference Sodium 139 135-145 mmol/L Potassium 4.5 3.3-5.1 mmol/L CL 107 96-108 mmol/L CO2 25 22-29 mmol/L Gap 12 12-20 BUN 18 H 9-16 mg/dL Creat 1.05 0.5-1.4 mg/dL eGFR > 60 Chronic Kidney Disease: Estimated GFR < 60 mL/min/1.73m2 Severe Kidney Disease: Estimated GFR < 15 mL/min/1.73m2 FBS 133 H 60-99 mg/dL A fasting glucose of 126 mg/dl or greater on more than one occasion is considered diagnostic of diabetes. CA 9.1 8.4-10.2 mg/dL AST (GOT) 22 5-37 U/L ALT (GPT) 17 0-40 U/L Triglyceride 100 <150 mg/dL Desirable Triglyceride: less than 150 mg/dL Borderline High Triglyceride 150-199 mg/dL High Triglyceride: 200-499 mg/dL Very High Triglyceride: greater than or equal to 5OO mg/dL Cholesterol 167 <200 mg/dL Desirable Cholesterol: less than 200 mg/dL Borderline High Cholesterol: 200-239 mg/dL High Cholesterol: greater than 239 mg/dL LDL Calculated 103 H <100 mg/dL Desirable LDL: less than 100 mg/dL Near Optimal/Above Optimal LDL: 110-129 mg/dL Borderline High LDL: 130-159 mg/dL High LDL: 160-189 mg/dL Very High LDL: greater than or equal to 190 mg/dL HDL 44 >40 mg/dL Desirable HDL: greater than 40 mg/dL Note: This HDL assay may give artificially low results in patients with liver disease. Vitamin D 25-OH 56.9 >30 ng/mL Health Based Reference Values* < 20 ng/mL Deficient 20-30 ng/mL Insufficient > 30 ng/mL Sufficient Laboratory Tests 09/29/24 08/22/25 09:50 11:43 Estimat Average Glucose 146 Hemoglobin A1c % 6.7 H Urine Creatinine 85.87 Urine Microalbumin 15.0 Microalb/Creat Ratio 17.4 Coding Level of Care Code Est Pt Level 4 (58891) Diagnoses Mixed dyslipidemia E78.2 Essential hypertension I10 Type 2 diabetes mellitus with hyperglycemia, without long-term current use of insulin E11.65 Diabetes mellitus type: type 2 Assessment & Plan Assessment & Plan (1) Mixed dyslipidemia: Code(s): E78.2 - Mixed hyperlipidemia Category: Medical Plan: Continue atorvastatin 10 mg once a day (2) Essential hypertension: Code(s): I10 - Essential (primary) hypertension Category: Medical Plan: Blood pressure at goal of less than 130/80. Continue with current medication. Reinforced importance of following a low sodium diet, getting regular exercise, and lowering stress levels. (3) Diabetes mellitus with hyperglycemia, without long-term current use of insulin: Code(s): E11.65 - Type 2 diabetes mellitus with hyperglycemia Category: Medical Qualifiers: Diabetes mellitus type: type 2 Qualified Code(s): E11.65 - Type 2 diabetes mellitus with hyperglycemia Plan: Continue with Jardiance and metformin at same dose. Reinforced diabetic diet and regular exercise with patient. Up-to-date with his yearly diabetes retinopathy screening, sees Dr. Grande . Patient advised to inspect feet daily, for any signs of injury, callus or infection. Compliance with diet and regular exercise again stressed. Blood pressure goal is less than 130/80, goal LDL is less than 100 and goal hemoglobin A1c is less than 7% follow-up appointment made in-4--months, after fasting labs done. Orders: Orders Alanine Aminotransferase 12/03/25 I10 - Essential (primary) hypertension, E78.2 - Mixed hyperlipidemia, E11.65 - Type 2 diabetes mellitus with hyperglycemia, N52.9 - Male erectile dysfunction, unspecified Aspartate Amino Transferase 12/03/25 I10 - Essential (primary) hypertension, E78.2 - Mixed hyperlipidemia, E11.65 - Type 2 diabetes mellitus with hyperglycemia, N52.9 - Male erectile dysfunction, unspecified Hemoglobin A1c 12/03/25 I10 - Essential (primary) hypertension, E78.2 - Mixed hyperlipidemia, E11.65 - Type 2 diabetes mellitus with hyperglycemia, N52.9 - Male erectile dysfunction, unspecified Lipid Panel 12/03/25 I10 - Essential (primary) hypertension, E78.2 - Mixed hyperlipidemia, E11.65 - Type 2 diabetes mellitus with hyperglycemia, N52.9 - Male erectile dysfunction, unspecified Vitamin D 25-OH Total 12/03/25 I10 - Essential (primary) hypertension, E78.2 - Mixed hyperlipidemia, E11.65 - Type 2 diabetes mellitus with hyperglycemia, N52.9 - Male erectile dysfunction, unspecified Basic Metabolic Panel Fasting 12/03/25 I10 - Essential (primary) hypertension, E78.2 - Mixed hyperlipidemia, E11.65 - Type 2 diabetes mellitus with hyperglycemia, N52.9 - Male erectile dysfunction, unspecified Microalbumin, Random (w Creat) 12/03/25 I10 - Essential (primary) hypertension, E78.2 - Mixed hyperlipidemia, E11.65 - Type 2 diabetes mellitus with hyperglycemia, N52.9 - Male erectile dysfunction, unspecified Medications: Changed From atorvastatin 20 mg PO DAILY 90 tabs 4RF To atorvastatin 10 mg PO DAILY
[2025-08-24 09:20] VITALS: BP 112/70; PULSE 73; RESP 16; TEMP 36.6; O2SAT 98; BMI 25.5
== END 2025-08-24 10:15 | disposition home or self-care (01) ==
LOC: HO.HMCC 09:07
PROVIDERS: PCP Internal Medicine; Visit Provider Internal Medicine
DX: E78.2 Mixed hyperlipidemia (principal); I10 Essential (primary) hypertension; E11.65 Type 2 diabetes mellitus with hyperglycemia